=== PATIENT | female | born 1995 | race Caucasian/White ===

== ENCOUNTER 2018-05-29 17:40 | Emergency (ER) | payer OTHER ==
[2018-05-29] MEDS ORDERED: KETOROLAC 30 MG/ML 1 ML VIAL IVP STA (17:55)
[2018-05-29] MEDS ORDERED: MORPHINE SULFATE 4 MG/ML SYRINGE IVP STA (17:55)
[2018-05-29] MEDS ORDERED: SODIUM CHLORIDE 0.9% 1,000 ML IV ONE (17:56)
--- NOTE | 2018-05-29 17:59 | ED ---
ENT HPI - General Chief complaint: ENT Stated complaint: abscess in throat Time Seen by Provider: 05/29/18 17:48 Source: patient Mode of arrival: ambulatory Limitations: no limitations - History of Present Illness Initial comments: Patient is a 22-year-old female presents with a chief complaint of sore throat, transferred from [facility] for concern for a peritonsillar abscess. Patient states is going on for 4 days. She states her pain has gradually gotten worse. She states that she has trouble swallowing however he does not have any trouble breathing. She states that her pain is 9 out of 10. Patient denies any history of similar previous episodes. She has NO KNOWN DRUG ALLERGIES. No other medical history. - Related Data Previous Rx's Medication Instructions Recorded Amoxicillin/Potassium Clav 1 tab PO Q12HR #14 tab 05/29/18 [Augmentin 875-125 Tablet] HYDROcodone/APAP 5-325MG [[place] 1 tab PO Q6HR PRN 3 Days #12 tab 05/29/18 5-325] Ibuprofen [Motrin] 800 mg PO TID #20 tab 05/29/18 Allergies Allergy/AdvReac Type Severity Reaction Status Date / Time No Known Allergies Allergy Verified 05/29/18 17:46 Review of Systems ROS Statement: Those systems with pertinent positive or pertinent negative responses have been documented in the HPI. ROS Other: All systems not noted in ROS Statement are negative. 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 Absent: respiratory distress Cardiovascular Exam: Present: regular rate, normal rhythm GI/Abdominal exam: Present: soft. Absent: distended, tenderness Rectal exam: Present: deferred Extremities exam: Present: normal inspection Back exam: Present: normal inspection Neurological exam: Present: alert, oriented X3 Psychiatric exam: Present: normal affect, normal mood Skin exam: Present: warm, dry, intact Course Vital Signs 05/29/18 17:43 Temperature 98.7 F Pulse Rate 95 Respiratory 18 Rate Blood Pressure 123/87 O2 Sat by Pulse 97 Oximetry Medical Decision Making - Medical Decision Making Patient presents with a chief complaint of sore throat for 4 days. On initial evaluation, vitals are stable, patient is in no acute distress. Findings are concerning for a left-sided peritonsillar abscess. Patient reevaluated this blood work, test, computed tomography scan soft tissue of the neck. Patient given Toradol, morphine, and IV fluids. Computed tomography scan was discussed with Dr. Roberson. He states there is a 2.4 x 2.1 cm left-sided peritonsillar abscess. Case discussed with Dr. Benavidez who is agreeable with ED drainage. Patient was given a dose of Unasyn , Decadron. Abscess was drained using an 18-gauge needle. We were able to retrieve 2-1/2 mL of pus. On reevaluation, patient's voice sounds better, she states that the pressure is improved. Patient tolerated the procedure well. Aerobic and anaerobic cultures were sent. Patient will be discharged on 7 days of Augmentin. She was instructed to call Dr. Edwards's office on Thursday for expedited follow-up. - Lab Data Result diagrams: 05/29/18 18:41 05/29/18 18:41 Lab Results 05/29/18 05/29/18 Range/Units 18:41 18:41 WBC 17.2 H (4.0-11.0) k/uL RBC 4.99 (3.80-5.40) m/uL Hgb 13.7 (11.4-16.0) gm/dL Hct 42.5 (34.0-46.0) % MCV 85.1 (80.0-100.0) fL MCH 27.4 (25.0-35.0) pg MCHC 32.2 (31.0-37.0) g/dL RDW 14.3 (11.5-15.5) % Plt Count 418 (150-450) k/uL Neutrophils % 82 % Lymphocytes % 11 % Monocytes % 5 % Eosinophils % 1 % Basophils % 0 % Neutrophils # 14.1 H (1.3-7.7) k/uL Lymphocytes # 1.8 (1.0-4.8) k/uL Monocytes # 0.8 (0-1.0) k/uL Eosinophils # 0.1 (0-0.7) k/uL Basophils # 0.1 (0-0.2) k/uL Sodium 140 (137-145) mmol/L Potassium 4.5 (3.5-5.1) mmol/L Chloride 108 H (98-107) mmol/L Carbon Dioxide 20 L (22-30) mmol/L Anion Gap 12 mmol/L BUN 10 (7-17) mg/dL Creatinine 0.63 (0.52-1.04) mg/dL Est GFR (CKD-EPI)AfAm >90 (>60 ml/min/1.73 sqM) Est GFR (CKD-EPI)NonAf >90 (>60 ml/min/1.73 sqM) Glucose 101 H (74-99) mg/dL Calcium 9.6 (8.4-10.2) mg/dL HCG, Qual Not Detected Disposition Clinical Impression: Peritonsillar abscess Disposition: HOME SELF-CARE Condition: Good Instructions: Abscess Incision and Drainage (ED), Abscess (ED) Is patient prescribed a controlled substance at d/c from ED?: Yes If prescribed controlled substance>3 days was MAPS reviewed?: Prescribed <3 Days Referrals: None,Stated [Primary Care Provider] - 1-2 days Samara Xie MD [STAFF PHYSICIAN] - 1-2 days
[2018-05-29 18:52] LABS: Basophils # (A) 0.1 k/uL (0-0.2); Basophils % (A) 0 %; Eosinophils # (A) 0.1 k/uL (0-0.7); Eosinophils % (A) 1 %; HCT 42.5 % (34.0-46.0); HGB 13.7 gm/dL (11.4-16.0); Lymphocytes # (A) 1.8 k/uL (1.0-4.8); Lymphocytes % (A) 11 %; MCH 27.4 pg (25.0-35.0); MCHC 32.2 g/dL (31.0-37.0); MCV 85.1 fL (80.0-100.0); Monocytes # (A) 0.8 k/uL (0-1.0); Monocytes % (A) 5 %; Neutrophils # (A) 14.1 k/uL (1.3-7.7); Neutrophils % (A) 82 %; Platelet Count 418 k/uL (150-450); RBC 4.99 m/uL (3.80-5.40); RDW 14.3 % (11.5-15.5); WBC 17.2 k/uL (4.0-11.0)
[2018-05-29 19:05] LABS: HCG,Qualitative Serum Not Detected
[2018-05-29 19:19] LABS: Anion Gap 12 mmol/L; Blood Urea Nitrogen 10 mg/dL (7-17); Calcium 9.6 mg/dL (8.4-10.2); Carbon Dioxide 20 mmol/L (22-30); Chloride 108 mmol/L (98-107); Glucose 101 mg/dL (74-99); Potassium 4.5 mmol/L (3.5-5.1); Sodium 140 mmol/L (137-145)
[2018-05-29] MEDS ORDERED: AMPICILLIN-SULBACTAM 1.5 GM in SODIUM CHLORIDE 0.9% 50 ML IVPB STA (19:54)
[2018-05-29] MEDS ORDERED: DEXAMETHASONE SOD PHOSPHATE 10 MG/ML 1 ML VIAL IV STA (19:54)
[2018-05-29] MEDS ORDERED: LIDOCAINE VISCOUS 2% 15 ML CUP MUCOUS MEM ONE ×2 (19:54→20:20)
--- NOTE | 2018-05-29 19:54 | CT ---
EXAMINATION TYPE: CT soft tissue neck w con DATE OF EXAM: 05/29/2018 COMPARISON: None HISTORY: pain CT DLP: 359 mGycm CONTRAST: Patient injected with 100 mL of Isovue 300. TECHNIQUE: Axial images at 3 mm thick sections. Reconstructed images in the coronal plane and sagitt al plane are reviewed. FINDINGS: Limited CT sections are obtained the lung apices. The lung apices appear clear. CT neck: The torus tubarius and fossa of Rosenmuller are normal. Head Bander And Liner Operator spaces are normal. Para nasal sinuses and mastoid air cells are clear. There is fullness with hypodensity within the left tonsillar pillar. This measures approximately 2.4 x 2.1 cm in size suspicious for a peritonsillar abscess. Report was called to emergency room physicia n Dr Orosco by Dr. Roberson by telephone at the time of interpretation. Parotid glands appear normal and symmetrical. Submandibular glands, are normal. Parapharyngeal spac es are normal. No suspicious adenopathy is evident. The hypopharynx appears within normal limits. Vocal cord level appear symmetrical. Thyroid as visualized is normal. Osseous structures are normal. IMPRESSIONS: 1. Left Tonsillar abscess measuring 2.4 x 2.1 cm.
[2018-05-29 21:13] VITALS: BP 108/69; PULSE 78; RESP 20; TEMP 99.6
== END 2018-05-29 21:26 | disposition home or self-care (01) ==
LOC: EC 17:40
DX: J36 Peritonsillar abscess (principal)
CPT/HCPCS: 36415; 80048; 85025; 84703; 87070; 87205; 87075; 70491; 99284; 42700; 96365; 96375 ×2; 96361 ×2; J1100; J1885; J0295; Q9967; 99285

== ENCOUNTER 2019-08-25 14:22 | Emergency (ER) | payer OTHER ==
[2019-08-25] MEDS ORDERED: AMPICILLIN-SULBACTAM 3 GM in SODIUM CHLORIDE 0.9% 100 ML IVPB STA (15:11)
[2019-08-25] MEDS ORDERED: SODIUM CHLORIDE 0.9% 1,000 ML IV STA (15:11)
[2019-08-25 15:49] LABS: Basophils % (A) 0 %; Eosinophils # (A) 0.1 k/uL (0-0.7); Eosinophils % (A) 1 %; HCT 42.8 % (34.0-46.0); HGB 14.1 gm/dL (11.4-16.0); Lymphocytes # (A) 1.5 k/uL (1.0-4.8); Lymphocytes % (A) 10 %; MCH 29.3 pg (25.0-35.0); MCV 88.8 fL (80.0-100.0); Mean Platelet Volume 6.1; Monocytes # (A) 0.7 k/uL (0-1.0); Monocytes % (A) 5 %; Neutrophils # (A) 12.6 k/uL (1.3-7.7); Neutrophils % (A) 84 %; Platelet Count 406 k/uL (150-450); RBC 4.82 m/uL (3.80-5.40); RDW 12.3 % (11.5-15.5)
[2019-08-25 15:57] LABS: Appearance,Urine Cloudy (Clear); Bilirubin,Urine Negative (Negative); Blood,Urine Moderate (Negative); Color,Urine Yellow; Glucose,Urine (UA) Negative (Negative); Ketones,Urine Negative (Negative); Leukocyte Esterase,Urine Trace (Negative); Mucus,Urine Few /hpf; Nitrite,Urine Negative (Negative); PH, Urine 6.5 (5.0-8.0); Protein,Urine 1+ (Negative); RBC,Urine >182 /hpf (0-5); Specific Gravity,Urine 1.038 (1.001-1.035); Squamous Epithelial Cell,Urine 39 /hpf (0-4); WBC,Urine 7 /hpf (0-5)
[2019-08-25 16:00] LABS: ALT 34 U/L (9-52); AST 28 U/L (14-36); African American GFR (CKD) >90 (>60 ml/min/1.73 sqM); Albumin 4.1 g/dL (3.5-5.0); Alkaline Phosphatase 68 U/L (38-126); Anion Gap 9 mmol/L; Blood Urea Nitrogen 8 mg/dL (7-17); Calcium 9.3 mg/dL (8.4-10.2); Carbon Dioxide 26 mmol/L (22-30); Chloride 106 mmol/L (98-107); Glucose 100 mg/dL (74-99); Non-African American GFR(CKD) >90 (>60 ml/min/1.73 sqM); Potassium 3.9 mmol/L (3.5-5.1); Sodium 141 mmol/L (137-145); Total Bilirubin 0.6 mg/dL (0.2-1.3); Total Protein 7.3 g/dL (6.3-8.2)
--- NOTE | 2019-08-25 16:28 | CT ---
EXAMINATION TYPE: CT soft tissue neck w con DATE OF EXAM: 08/25/2019 COMPARISON: None HISTORY: Sore throat with hoarseness. CT DLP: 325.9 mGycm CONTRAST: Patient injected with 100 mL of Isovue 300. TECHNIQUE: Axial images at 3 mm thick sections. Reconstructed images in the coronal plane and sagitt al plane are reviewed. FINDINGS: Limited CT sections are obtained the lung apices. The lung apices appear clear. CT neck: There is a 1.9 cm hypodensity with ill-defined margins within the left tonsillar pillar. Fin dings can be compatible with peritonsillar abscess. Bilateral tonsils appears somewhat prominent. The torus tubarius and fossa of Rosenmuller are normal. There may be some fullness of the adenoid. M asticator spaces are normal. Paranasal sinuses and mastoid air cells are clear. Parotid glands appear normal and symmetrical. Submandibular glands, are normal. Parapharyngeal spac es are normal. Multiple scattered lymph nodes within the posterior triangles bilaterally. Enlarged l ymphadenopathy is not evident. Jugulodigastric and carotid sheath regions appear within normal limits . The hypopharynx appears within normal limits. Vocal cord level appear symmetrical. Thyroid as visualized is normal. Osseous structures are normal. IMPRESSIONS: 1. 1.9 cm left peritonsillar abscess. Report was called to the emergency room by Dr. Roberson by shelly walls at the time of interpretation.
[2019-08-25] MEDS ORDERED: BENZOCAINE SPRAY 1 CAN MUCOUS MEM STA (16:40)
--- NOTE | 2019-08-25 16:42 | ED ---
General Adult HPI - General Chief complaint: ENT Stated complaint: Throat pain Time Seen by Provider: 08/25/19 15:02 Source: patient, RN notes reviewed Mode of arrival: ambulatory Limitations: no limitations - History of Present Illness Initial comments: 24-year-old female presents to the emergency department for chief complaint of sore throat. This has been ongoing for the past 5 days. However patient states the pain is now only on the left side. States she has had a previous. Tonsillar abscess in this area. Patient is concerned she may be having the same thing again. She denies fevers or chills. She denies difficulty swallowing solids or liquids. Denies trismus. Denies neck stiffness. Patient has no other complaints at this time including shortness of breath, chest pain, abdominal pain, nausea or vomiting, headache, or visual changes. - Related Data Previous Rx's Medication Instructions Recorded Amoxicillin/Potassium Clav 1 tab PO Q12HR #14 tab 05/29/18 [Augmentin 875-125 Tablet] HYDROcodone/APAP 5-325MG [[place] 1 tab PO Q6HR PRN 3 Days #12 tab 05/29/18 5-325] Ibuprofen [Motrin] 800 mg PO TID #20 tab 05/29/18 Amoxicillin/Potassium Clav 1 tab PO Q12HR #20 tab 08/25/19 [Augmentin 875-125 Tablet] Allergies Allergy/AdvReac Type Severity Reaction Status Date / Time No Known Allergies Allergy Verified 08/25/19 14:40 Review of Systems ROS Statement: Those systems with pertinent positive or pertinent negative responses have been documented in the HPI. ROS Other: All systems not noted in ROS Statement are negative. Past Medical History Past Medical History: No Reported History History of Any Multi-Drug Resistant Organisms: None Reported Past Surgical History: Orthopedic Surgery Past Psychological History: No Psychological Hx Reported Smoking Status: Never smoker Past Alcohol Use History: Occasional Past Drug Use History: None Reported General Exam Limitations: no limitations General appearance: alert, in no apparent distress Head exam: Present: atraumatic, normocephalic, normal inspection Eye exam: Present: normal appearance, PERRL, EOMI. Absent: scleral icterus, conjunctival injection, periorbital swelling ENT exam: Present: normal exam, mucous membranes moist, TM's normal bilaterally, normal external ear exam. Absent: normal oropharynx (Patient has fullness over the left tonsillar pillar as well as deviation of the uvula to the right) Neck exam: Present: normal inspection, full ROM. Absent: tenderness, meningismus, lymphadenopathy Respiratory exam: Present: normal lung sounds bilaterally. Absent: respiratory distress, wheezes, rales, rhonchi, stridor Cardiovascular Exam: Present: regular rate, normal rhythm, normal heart sounds. Absent: systolic murmur, diastolic murmur, rubs, gallop, clicks Course Vital Signs 08/25/19 08/25/19 14:41 18:08 Temperature 98.2 F 98 F Pulse Rate 111 H 78 Respiratory 16 18 Rate Blood Pressure 121/73 120/78 O2 Sat by Pulse 97 98 Oximetry Procedures - Procedures Initial comment: Incision/Drainage of Peritonsillar Abscess Performed by: Deonte Daly PA-C. Consent: Verbal consent obtained. Type: peritonsilar abscess Location details: Left Anesthesia: Benzocaine spray Incision type: straight puncture to 1.5 cm with 18 G needle covered by plastic cover Attempts: 1 Drainage: purulent drainage Drainage amount: 3cc Patient tolerance: Patient tolerated the procedure well with no immediate complications. Medical Decision Making - Medical Decision Making Vitals are stable. Patient initially tachycardic likely secondary to anxiety as this did normalize throughout her stay. Physical exam reveals fullness of the left tonsillar pillar as well as a uvula deviated to the right. CBC shows a white blood cell count 15. CMP is unremarkable. Urine does show greater than 182 red blood cells however patient does not report being on her period. I recommended she follow up to have this repeated to ensure that this resolves. Heterophile, rapid strep negative. CT soft tissue neck was ordered which did reveal a 1.9 cm left peritonsillar abscess. I did drain this using an 18-gauge needle without difficulty after giving 1 mg of Ativan for anxiety. 3 mL of purulent material was obtained. Patient was given IV Unasyn here in the emergency department. She will be put on Augmentin outpatient. She was given ENT follow-up. She will return here if she has any worsening symptoms. She is currently stable for discharge. - Lab Data Result diagrams: 08/25/19 15:29 08/25/19 15:29 Lab Results 08/25/19 08/25/19 08/25/19 Range/Units 15:29 15:29 15:29 WBC 15.0 H (3.8-10.6) k/uL RBC 4.82 (3.80-5.40) m/uL Hgb 14.1 (11.4-16.0) gm/dL Hct 42.8 (34.0-46.0) % MCV 88.8 (80.0-100.0) fL MCH 29.3 (25.0-35.0) pg MCHC 33.0 (31.0-37.0) g/dL RDW 12.3 (11.5-15.5) % Plt Count 406 (150-450) k/uL Neutrophils % 84 % Lymphocytes % 10 % Monocytes % 5 % Eosinophils % 1 % Basophils % 0 % Neutrophils # 12.6 H (1.3-7.7) k/uL Lymphocytes # 1.5 (1.0-4.8) k/uL Monocytes # 0.7 (0-1.0) k/uL Eosinophils # 0.1 (0-0.7) k/uL Basophils # 0.0 (0-0.2) k/uL Sodium 141 (137-145) mmol/L Potassium 3.9 (3.5-5.1) mmol/L Chloride 106 (98-107) mmol/L Carbon Dioxide 26 (22-30) mmol/L Anion Gap 9 mmol/L BUN 8 (7-17) mg/dL Creatinine 0.69 (0.52-1.04) mg/dL Est GFR (CKD-EPI)AfAm >90 (>60 ml/min/1.73 sqM) Est GFR (CKD-EPI)NonAf >90 (>60 ml/min/1.73 sqM) Glucose 100 H (74-99) mg/dL Calcium 9.3 (8.4-10.2) mg/dL Total Bilirubin 0.6 (0.2-1.3) mg/dL AST 28 (14-36) U/L ALT 34 (9-52) U/L Alkaline Phosphatase 68 (38-126) U/L Total Protein 7.3 (6.3-8.2) g/dL Albumin 4.1 (3.5-5.0) g/dL Urine Color Urine Appearance (Clear) Urine pH (5.0-8.0) Ur Specific [place] (1.001-1.035) Urine Protein (Negative) Urine Glucose (UA) (Negative) Urine Ketones (Negative) Urine Blood (Negative) Urine Nitrite (Negative) Urine Bilirubin (Negative) Urine Urobilinogen (<2.0) mg/dL Ur Leukocyte Esterase (Negative) Urine RBC (0-5) /hpf Urine WBC (0-5) /hpf Ur Squamous Epith Cells (0-4) /hpf Urine Mucus (None) /hpf Urine HCG, Qual Not Detected (Not Detectd) Heterophile Antibody (Negative) Group A Strep Rapid (Negative) 08/25/19 08/25/19 08/25/19 Range/Units 15:29 15:29 15:29 WBC (3.8-10.6) k/uL RBC (3.80-5.40) m/uL Hgb (11.4-16.0) gm/dL Hct (34.0-46.0) % MCV (80.0-100.0) fL MCH (25.0-35.0) pg MCHC (31.0-37.0) g/dL RDW (11.5-15.5) % Plt Count (150-450) k/uL Neutrophils % % Lymphocytes % % Monocytes % % Eosinophils % % Basophils % % Neutrophils # (1.3-7.7) k/uL Lymphocytes # (1.0-4.8) k/uL Monocytes # (0-1.0) k/uL Eosinophils # (0-0.7) k/uL Basophils # (0-0.2) k/uL Sodium (137-145) mmol/L Potassium (3.5-5.1) mmol/L Chloride (98-107) mmol/L Carbon Dioxide (22-30) mmol/L Anion Gap mmol/L BUN (7-17) mg/dL Creatinine (0.52-1.04) mg/dL Est GFR (CKD-EPI)AfAm (>60 ml/min/1.73 sqM) Est GFR (CKD-EPI)NonAf (>60 ml/min/1.73 sqM) Glucose (74-99) mg/dL Calcium (8.4-10.2) mg/dL Total Bilirubin (0.2-1.3) mg/dL AST (14-36) U/L ALT (9-52) U/L Alkaline Phosphatase (38-126) U/L Total Protein (6.3-8.2) g/dL Albumin (3.5-5.0) g/dL Urine Color Yellow Urine Appearance Cloudy H (Clear) Urine pH 6.5 (5.0-8.0) Ur Specific [place] 1.038 H (1.001-1.035) Urine Protein 1+ H (Negative) Urine Glucose (UA) Negative (Negative) Urine Ketones Negative (Negative) Urine Blood Moderate H (Negative) Urine Nitrite Negative (Negative) Urine Bilirubin Negative (Negative) Urine Urobilinogen 2.0 (<2.0) mg/dL Ur Leukocyte Esterase Trace H (Negative) Urine RBC >182 H (0-5) /hpf Urine WBC 7 H (0-5) /hpf Ur Squamous Epith Cells 39 H (0-4) /hpf Urine Mucus Few H (None) /hpf Urine HCG, Qual (Not Detectd) Heterophile Antibody Negative (Negative) Group A Strep Rapid Negative (Negative) Disposition Clinical Impression: Peritonsillar abscess Disposition: HOME SELF-CARE Condition: Good Instructions (If sedation given, give patient instructions): Peritonsillar Abscess (ED) Additional Instructions: Please take antibiotic as directed. Please follow-up with ENT in 1-2 days. Return to the emergency department if you have any worsening symptoms. Follow up with primary care for blood in urine to ensure that this is resolving. Prescriptions: Amoxicillin/Potassium Clav [Augmentin 875-125 Tablet] 1 tab PO Q12HR #20 tab Is patient prescribed a controlled substance at d/c from ED?: No Referrals: Pernell Santacruz DO [Doctor of Osteopathic Medicine] - 1-2 days Jason Norton MD [REFERRING] - 1-2 days Time of Disposition: 17:50
[2019-08-25] MEDS ORDERED: LORazepam 2 MG/ML INJ IV STA (17:00)
[2019-08-25 18:09] VITALS: BP 120/78; PULSE 78; RESP 18; TEMP 98
== END 2019-08-25 18:08 | disposition home or self-care (01) ==
LOC: EC 14:22
DX: J36 Peritonsillar abscess (principal); R00.0 Tachycardia, unspecified; R31.9 Hematuria, unspecified
CPT/HCPCS: 36415; 80053; 85025; 86308; 81001; 81025; 87040; 87070; 87205; 87081; 87430; 70491; 99283; 42700; 96365; 96375; J2060; J0295; Q9967

== ENCOUNTER 2020-10-26 20:30 | Outpatient (CLI) | payer OTHER ==
[2020-10-26 21:29] VITALS: BP 117/68; PULSE 111; RESP 18; TEMP 96.7
--- NOTE | 2020-11-16 15:33 | P.MSEPDOC ---
Presenting Problems - Arrival Data Date of Arrival on Unit: 10/26/20 Time of Arrival on Unit: 20:30 Mode of Transport: Ambulatory - Complaint OB-Reason for Admission/Chief Complaint: Decreased Movement Medical History - Information : 1 Para: 0 Term: 0 : 0 Abortions: Spontaneous or Elective: 0 Number of Living Children: 0 - Gestational Age Gestational Age by KATHY (wks/days): 34 Weeks and 4 Days Review of Systems - Review of Systems Constitutional: No problems Breast: No problems ENT: No problems Cardiovascular: No problems Respiratory: No problems Gastrointestinal: No problems Genitourinary: No problems Musculoskeletal: No problems Neurological: No problems Skin: No problems Vital Signs - Temperature Temperature: 96.7 F Temperature Source: Temporal Artery Scan - Pulse Right Pulse Rate: 111 Pulse Assessment Method: Pulse Oximetry - Respirations Respiratory Rate: 18 Oxygen Delivery Method: Room Air O2 Sat by Pulse Oximetry: 98 - Blood Pressure Right Arm Blood Pressure: 117/68 Blood Pressure Mean: 84 Blood Pressure Source: Automatic Cuff Medical Screen Scoring (Pre) - Cervical Exam Dilation: Exam Deferred Effacement: Exam Deferred Membranes: Intact - Uterine Contractions Frequency: N/A Duration: N/A Intensity: N/A - Maternal Vital Signs Maternal Temperature: N/A Maternal Blood Pressure: N/A Signs of Preeclampsia: N/A Maternal Respirations: N/A - Maternal Trauma Maternal Trauma: N/A - Assessment - Baby A Baseline FHR: 145 Heart Rate - NICHD Category: Category I (Normal) = 0 NST: Reactive Position: N/A Station: N/A - Total Score - Baby A Total Score - Baby A: 0 - Total Score - Baby B Total Score - Baby B: 0 - Total Score - Baby C Total Score - Baby C: 0 - Level of Risk - Baby A Level of Risk - Baby A: Low (0-5) - Level of Risk - Baby B Level of Risk - Baby B: Low (0-5) - Level of Risk - Baby C Level of Risk - Baby C: Low (0-5) Physician Notification (Pre) - Physician Notified Physician Notified Date: 10/26/20 Physician Notified Time: 20:56 New Order Received: Yes - Notification Comment Comment: RN spoke with Dr. Singh regarding patient's complaint of decreased . movement throughout today. Reactive NST, audible movement noted per RN, no movement per patient. No other complaints. RN to discharge patient and reassure patient that . status is reassuring. Patient to follow up with Dr. Hernández next week in the office. Disposition - Disposition OB Disposition: Discharge to home Discharge Date: 10/26/20 Discharge Time: 21:05 I agree with the RN Medical Screening Exam: Yes Physician's MSE Comment: Patient was not seen or examined by myself Case reviewed; plan agreed upon as documented in EMR&OBIX.: Yes Diagnosis: DECREASED MOVEMENTS, THIRD TRIMESTER, FETUS 1
== END 2020-10-26 21:05 | disposition home or self-care (01) ==
LOC: FBPOP 20:30
PROVIDERS: ATTEND Obstetrics & Gynecology Obstetrics
DX: O36.8131 Decreased fetal movements, third trimester, fetus 1 (principal); Z3A.34 34 weeks gestation of pregnancy
CPT/HCPCS: 59025; G0463; 99213

== ENCOUNTER 2020-12-06 05:59 | Inpatient (IN) | payer OTHER ==
[2020-12-06] MEDS ORDERED: OXYTOCIN 30 UNITS/500 ML NS 30 UNIT in SALINE 1 500ML.BAG IV SCH (06:15)
[2020-12-06] MEDS ORDERED: METHYLERGONOVINE 0.2 MG/ML 1 ML AMP IM PRN (06:15)
[2020-12-06] MEDS ORDERED: OXYTOCIN 10 UNIT/ML 1 ML VIAL IM PRN (06:15)
[2020-12-06] MEDS ORDERED: CARBOPROST TROMETHAMINE 250 MCG/ML 1 ML AMP IM PRN (06:15)
[2020-12-06] MEDS ORDERED: LIDOCAINE 0.5% (PF) 5 MG/ML (50 ML SDV) SQ PRN (06:15)
[2020-12-06] MEDS ORDERED: TERBUTALINE 1 MG/ML VIAL SQ PRN (06:15)
[2020-12-06] MEDS: LACTATED RINGERS 1,000 ML IV SCH ×4 (06:47→21:00)
[2020-12-06 07:04] LABS: Basophils # (A) 0.1 k/uL (0-0.2); Basophils % (A) 1 %; Eosinophils # (A) 0.3 k/uL (0-0.7); Eosinophils % (A) 3 %; HGB 11.7 gm/dL (11.4-16.0); Lymphocytes # (A) 2.5 k/uL (1.0-4.8); Lymphocytes % (A) 21 %; MCH 28.8 pg (25.0-35.0); MCHC 33.5 g/dL (31.0-37.0); MCV 85.9 fL (80.0-100.0); Mean Platelet Volume 7.9; Monocytes # (A) 0.6 k/uL (0-1.0); Monocytes % (A) 5 %; Neutrophils # (A) 8.2 k/uL (1.3-7.7); Neutrophils % (A) 69 %; Platelet Count 301 k/uL (150-450); RBC 4.07 m/uL (3.80-5.40); RDW 14.2 % (11.5-15.5); WBC 11.9 k/uL (3.8-10.6)
--- NOTE | 2020-12-06 07:19 | P.HPOB ---
History of Present Illness H&P Date: 12/06/20 Chief Complaint: Here for induction of labor This is a 25-year-old white female 1 para 0 EDC 12/03/2020 at 40-3/7 weeks' gestation who presents this morning for induction of labor with favorable cervix. Fetus is been active throughout the . She is having mild irregular contractions. She denies fluid leakage or vaginal bleeding. Past medical history is essentially negative. Past surgical history significant for finger surgery. Current medications vitamins daily. ALLERGIES none known. Family history significant for hypertension and breast cancer. Social history patient is single, father of the baby is involved. She denies alcohol tobacco or drug use. history blood type A+, rubella status nonimmune. VDRL testing, urine culture, hepatitis B surface antigen, HIV testing, gonorrhea cultures, group B strep cultures negative. Chlamydia culture positive, treated, reculture negative. On exam patient is 5 foot 5 inches, 224 pounds, blood pressure 121/79. General physical exam is within normal limits. Cervix is 3 cm dilated, 80% effaced, -1 station, vertex presentation, soft, anterior. Artificial amniorrhexis reveals clear fluid. heart tones are consistent with reactive NST. Impression: 40-3/7 weeks intrauterine , here for induction of labor, all signs reassuring. Negative group B strep cultures. Plan: Oxytocin per hospital protocol. Analgesic options reviewed. Close maternal and surveillance. Anticipate normal spontaneous vaginal delivery. Review of Systems Constitutional: Reports as per HPI Past Medical History Past Medical History: No Reported History History of Any Multi-Drug Resistant Organisms: None Reported Past Surgical History: Orthopedic Surgery Past Anesthesia/Blood Transfusion Reactions: No Reported Reaction Past Psychological History: No Psychological Hx Reported Smoking Status: Never smoker Past Alcohol Use History: None Reported Past Drug Use History: None Reported - Past Family History Mother Family Medical History: No Reported History Medications and Allergies Home Medications Medication Instructions Recorded Confirmed Type Pnv,Calcium 72/Iron/Folic Acid 1 tab PO DAILY 10/26/20 12/06/20 History [ Plus Tablet] Allergies Allergy/AdvReac Type Severity Reaction Status Date / Time No Known Allergies Allergy Verified 12/06/20 06:13 Exam Vital Signs Temp Pulse Resp BP Pulse Ox 12/06/20 06:32 96.5 F L 94 16 121/79 100 Intake and Output 12/05/20 12/06/20 12/06/20 22:59 06:59 14:59 Other: Weight 101.605 kg See dictation under HPI please Results Result Diagrams: 12/06/20 06:23 Abnormal Lab Results - Last 24 Hours (Table) 12/06/20 Range/Units 06:23 WBC 11.9 H (3.8-10.6) k/uL Neutrophils # 8.2 H (1.3-7.7) k/uL Assessment and Plan Assessment: 40-3/7 weeks intrauterine , here for induction of labor. All signs reassuring. Plan: Continue close maternal and surveillance. Analgesic options reviewed. Anticipate normal spontaneous vaginal delivery. Time with Patient: Less than 30
[2020-12-06] MEDS ORDERED: ROPIVACAINE 5MG/ML 20ML VIAL ONE (09:27)
[2020-12-06] MEDS ORDERED: SODIUM CHLORIDE 0.9% 100 ML BAG ONE (09:27)
[2020-12-06] MEDS ORDERED: fentaNYL (PF) 50 MCG/ML 5 ML AMP ONE (09:27)
[2020-12-06] MEDS ORDERED: CITRIC ACID-SODIUM CITRATE 15 ML CUP PO ONE (16:48)
[2020-12-06] MEDS ORDERED: OXYTOCIN 10 UNIT/ML 1 ML VIAL ONE (16:57)
[2020-12-06] MEDS ORDERED: KETOROLAC 15 MG/ML 1 ML VIAL ONE (16:57)
[2020-12-06] MEDS ORDERED: NALBUPHINE 10 MG/ML (1 ML AMP) ONE (16:57)
[2020-12-06] MEDS ORDERED: ZOLPIDEM 5 MG TAB PO PRN (17:45)
[2020-12-06] MEDS ORDERED: METOCLOPRAMIDE 5 MG/ML 2 ML VIAL IVP PRN (17:45)
[2020-12-06] MEDS ORDERED: MEASLES-MUMPS-RUBELLA VACC/PF 12,500 UNIT/0.5 ML VIAL SQ ONE (17:45)
[2020-12-06] MEDS ORDERED: ONDANSETRON 4 MG/2 ML VIAL IVP PRN (17:45)
[2020-12-06] MEDS ORDERED: diphenhydrAMINE 50 MG CAP PO PRN (17:45)
[2020-12-06] MEDS ORDERED: diphenhydrAMINE 50 MG/ML 1 ML VIAL IVP PRN ×2 (17:45)
[2020-12-06] MEDS ORDERED: diphenhydrAMINE 25 MG CAP PO PRN (17:45)
[2020-12-06] MEDS ORDERED: NALOXONE 0.4 MG/ML 1 ML VIAL IV PRN (17:45)
--- NOTE | 2020-12-06 17:45 | P.OP ---
Date of Procedure: 12/06/20 Preoperative Diagnosis: 40-3/7 weeks intrauterine , arrest of descent in the second stage. Postoperative Diagnosis: Occiput posterior, liveborn male infant. Procedure(s) Performed: Primary low transverse section Anesthesia: epidural Surgeon: Anisha Hernández Project Development Coordinator #1: Madhavi Singh Estimated Blood Loss (ml): 500 IV fluids (ml): 600 Urine output (ml): 50 Pathology: none sent Condition: stable Disposition: PACU Operative Findings: Liveborn male , normal-appearing tubes and ovaries bilaterally. Description of Procedure: This is a 25-year-old white female 1 para 0 EDC 12/03/2020 at 40-3/7 weeks' gestation who presented this morning for induction of labor. Patient became completely dilated and began pushing. There was no descent in the second stage noted, and this accompanied by maternal exhaustion and unwillingness to push upon to rest to proceed with primary low transverse section. Artificial amniorrhexis revealed Clear fluid. Patient is brought to the operating suite where the previously placed epidural is topped off. She is placed in the dorsal supine position, Webber catheter to direct drainage. The abdomen is prepped and draped in usual sterile fashion. Vaginal prep was performed. The appropriate timeout is performed to assure proper patient and procedural identification. The analgesia is checked and noted to be working well. A low transverse skin incision is made in this is carried down through the subcutaneous tissue which is approximately 4 cm deep. Fascia is isolated, scored, extended bilaterally with curved Rodriguez scissors. Peritoneum is next identified and incised, there is no bowel or bladder involvement. The bladder blade is placed over the dome of the bladder and at all times the bladder is Well from the operative field to avoid bladder and/or ureteral injury. A low transverse uterine incision is made in this is extended. 's head is delivered occiput posterior. There is no nuchal cord noted. The patient is officially delivered of a liveborn male infant was handed immediately to the power manager for evaluation. Placenta is delivered manually, it is inspected and noted to be intact with trivascular cord. At this time the uterus is externalized and massaged. It is swept clean with a sterile sponge to avoid any retained products of conception. Uterus is closed in a two-step fashion, first layer running locking with 0 Vicryl, second layer imbricated with 0 Vicryl. Bilateral tubes and ovaries are inspected and noted to be normal. The abdomen is then suctioned with suction on guard posterior to the uterus, and the uterus is placed gently back into the abdominal cavity. Bilateral gutters are inspected and cleaned. Uterine incision is hemostatically intact. The peritoneum was allowed to close by secondary intention. The fascia is closed in a single full-thickness stitch of 0 Vicryl, running. Over ligation is done in the midline. Subcutaneous tissue is irrigated, inspected, clean and dry. 2-0 undyed Vicryl is used to reapproximate the subcutaneous layer in a running fashion. 4-0 undyed Vicryl issues for final skin closure. Steri-Strips and Mastisol are applied to the wound. Webber is noted to be draining clear urine. All sponge needle and enhancement counts are correct at the end of the procedure. Patient is brought back to recovery room in very good condition with stable vital signs. Infant's weight 7 lbs. 7 oz. Infant is brought to the nursery for further evaluation.
[2020-12-07] MEDS: IBUPROFEN 600 MG TAB PO SCH ×4 (00:44→22:21)
[2020-12-07] MEDS: SENNOSIDES-DOCUSATE SODIUM 1 EACH TAB PO SCH ×3 (03:15→22:21)
[2020-12-07] MEDS: ACETAMINOPHEN TAB 500 MG TAB PO SCH ×3 (03:39→20:24)
[2020-12-07] MEDS: LACTATED RINGERS 1,000 ML IV SCH ×2 (04:58→22:21)
--- NOTE | 2020-12-07 07:47 | P.PN ---
Progress Note - Text Date:12/07/20 Time:651am Patient is status post . Patient seen this morning with VAS score of 4.no c/o of pruritus, no c/o nausea/vomiting, comfortable and doing well.
[2020-12-07 10:02] LABS: Basophils % (A) 0 %; Eosinophils # (A) 0.3 k/uL (0-0.7); Eosinophils % (A) 2 %; HCT 31.2 % (34.0-46.0); HGB 10.1 gm/dL (11.4-16.0); Lymphocytes # (A) 2.3 k/uL (1.0-4.8); Lymphocytes % (A) 16 %; MCH 27.9 pg (25.0-35.0); MCHC 32.4 g/dL (31.0-37.0); MCV 86.2 fL (80.0-100.0); Mean Platelet Volume 7.7; Monocytes # (A) 0.7 k/uL (0-1.0); Monocytes % (A) 5 %; Neutrophils # (A) 10.4 k/uL (1.3-7.7); Neutrophils % (A) 76 %; Platelet Count 269 k/uL (150-450); RBC 3.63 m/uL (3.80-5.40); RDW 14.7 % (11.5-15.5); WBC 13.7 k/uL (3.8-10.6)
[2020-12-08] MEDS: IBUPROFEN 600 MG TAB PO SCH ×4 (01:31→17:14)
[2020-12-08] MEDS: ACETAMINOPHEN TAB 500 MG TAB PO SCH ×4 (01:31→14:21)
[2020-12-08] MEDS: LACTATED RINGERS 1,000 ML IV SCH (01:32)
[2020-12-08] MEDS: SENNOSIDES-DOCUSATE SODIUM 1 EACH TAB PO SCH (08:00)
[2020-12-08 09:24] VITALS: RESP 18
--- NOTE | 2020-12-08 12:17 | P.DS ---
Providers Date of admission: 12/06/20 05:59 Expected date of discharge: 12/08/20 Attending physician: Anisha Hernández Primary care physician: Stated None - Discharge Diagnosis(es) (1) Status post section Current Visit: Yes Status: Acute Hospital Course: The patient is a 25-year-old 1 para 0 admitted at 40-3/7 weeks for induction of labor. Her has been essentially uncomplicated and group B strep status is negative. On labor and delivery, she had Pitocin started followed by artificial rupture of membranes. She progressed and had an epidural catheter placed for analgesia. She ultimately progressed to complete and began to push but ultimately was found to have arrest of descent along with maternal exhaustion. As a result, she was taken the operating room where she was delivered by primary low transverse section of a viable 3380 g male infant with Apgars of 2 at 1 minute 7 at 5 minutes and 9 at 10 minutes. Her postoperative course was unremarkable with vital signs being stable and her temperature was afebrile throughout. She was deemed stable for discharge on postoperative day #2 and was discharged home to follow-up in the office in 2 weeks for an incision check and 6 weeks routinely. Discharge instructions included calling for any significantly increased bleeding or foul-smelling lochia, significantly increased fever or abdominal pain, perineal complaints, breast complaints, incisional complaints, or anything else that concerned her. She is additionally instructed to have nothing in the vagina for at least 6 weeks time to include intercourse. She was additionally instructed to do no heavy lifting over the same period of time and to abstain from driving until off of all pain medications or 2 weeks' time, whichever came first. She understood her instructions and agrees to follow up as noted above. Maternal blood type is A+ and rubella status is nonimmune. She therefore was to receive the MMR vaccination prior to discharge. Discharge hemoglobin and hematocrit were 10.1 and 31.2 respectively. Procedures: #1. Pitocin induction #2. Artificial rupture of membranes #3. Epidural analgesia #4. Primary low-transverse section Patient Condition at Discharge: Stable Plan - Discharge Summary New Discharge Prescriptions: No Action Pnv,Calcium 72/Iron/Folic Acid [ Plus Tablet] 1 tab PO DAILY Discharge Medication List Pnv,Calcium 72/Iron/Folic Acid [ Plus Tablet] 1 tab PO DAILY 10/26/20 [History] Follow up Appointment(s)/Referral(s): Anisha Hernández MD [STAFF PHYSICIAN] - 2 Weeks Discharge Disposition: HOME SELF-CARE
[2020-12-08 16:56] VITALS: BP 110/66; PULSE 85; TEMP 98
== END 2020-12-08 17:45 | disposition home or self-care (01) | DRG 788 ==
LOC: 4FBP 05:59
PROVIDERS: ADMIT Obstetrics & Gynecology; ATTEND Obstetrics & Gynecology
PROC: 3E033VJ Introduction of Other Hormone into Peripheral Vein, Percutaneous Approach (ICD-10-PCS; 2020-12-06)
PROC: 3E0R3BZ Introduction of Anesthetic Agent into Spinal Canal, Percutaneous Approach (ICD-10-PCS; 2020-12-06)
PROC: 10D00Z1 Extraction of Products of Conception, Low, Open Approach (ICD-10-PCS; principal; 2020-12-06 06:00)
DX: O62.1 Secondary uterine inertia (principal); Z3A.40 40 weeks gestation of pregnancy; O75.81 Maternal exhaustion complicating labor and delivery; Z37.0 Single live birth; Z79.899 Other long term (current) drug therapy; Z80.3 Family history of malignant neoplasm of breast; Z82.49 Family history of ischemic heart disease and other diseases of the circulatory system
CPT/HCPCS: 85025; 86850; 86900; 86901; 90707

== ENCOUNTER 2021-06-30 17:25 | Emergency (ER) | payer OTHER ==
[2021-06-30 19:10] VITALS: BP 107/76; PULSE 88; RESP 17; TEMP 98.2
[2021-06-30] MEDS ORDERED: AMOXIC-POT CLAV 875MG STARTER PACK 2 TAB BTL PO STA (19:24)
[2021-06-30] MEDS ORDERED: ACET/COD 300 MG/30 MG STARTER PACK 6 TAB BTL PO STA (19:24)
--- NOTE | 2021-06-30 19:25 | ED ---
General Adult HPI - General Chief complaint: Dental/Oral Stated complaint: tooth pain Time Seen by Provider: 06/30/21 19:16 Source: patient Mode of arrival: ambulatory Limitations: no limitations - History of Present Illness Initial comments: 25-year-old female patient presents to the emergency department today for evaluation of right lower dental pain. Patient states the pain is been present for the last couple of days. States today the pain started radiating up to her ear and down her jaw. States that she did have similar toothache when she was but it stopped for several months. She has not followed up with the dentist. She denies any fever or chills. Denies facial swelling. Denies any trismus or difficulty swallowing. Denies nausea or vomiting. Denies any chance of . - Related Data Home Medications Medication Instructions Recorded Confirmed Pnv,Calcium 72/Iron/Folic Acid 1 tab PO DAILY 10/26/20 12/06/20 [ Plus Tablet] Previous Rx's Medication Instructions Recorded Amoxic-Pot Clav 875-125Mg 1 tab PO Q12HR #20 tablet 06/30/21 [Augmentin 875-125] Allergies Allergy/AdvReac Type Severity Reaction Status Date / Time No Known Allergies Allergy Verified 06/30/21 19:10 Review of Systems ROS Statement: Those systems with pertinent positive or pertinent negative responses have been documented in the HPI. ROS Other: All systems not noted in ROS Statement are negative. Past Medical History Past Medical History: No Reported History History of Any Multi-Drug Resistant Organisms: None Reported Past Surgical History: Section, Orthopedic Surgery Past Anesthesia/Blood Transfusion Reactions: No Reported Reaction Past Psychological History: No Psychological Hx Reported Smoking Status: Never smoker Past Alcohol Use History: None Reported Past Drug Use History: None Reported - Past Family History Mother Family Medical History: No Reported History General Exam Limitations: no limitations General appearance: alert, in no apparent distress, other (This is a well- developed, well-nourished adult female patient in no acute distress. Vital signs upon presentation are temperature 98.2F, pulse 88, respirations 17, blood pressure 107/76, pulse ox 97% on room air.) ENT exam: Present: normal exam, mucous membranes moist, other (There is a large dental caries noted to tooth #30. Mild surrounding gingival erythema. No evidence for drainable abscess.) Respiratory exam: Present: normal lung sounds bilaterally. Absent: respiratory distress, wheezes, rales, rhonchi, stridor Cardiovascular Exam: Present: regular rate, normal rhythm, normal heart sounds. Absent: systolic murmur, diastolic murmur, rubs, gallop, clicks Neurological exam: Present: alert, oriented X3, CN II-XII intact Psychiatric exam: Present: normal affect, normal mood Skin exam: Present: warm, dry, intact, normal color. Absent: rash Course Vital Signs 06/30/21 19:05 Temperature 98.2 F Pulse Rate 88 Respiratory 17 Rate Blood Pressure 107/76 O2 Sat by Pulse 97 Oximetry Medical Decision Making - Medical Decision Making 25-year-old female patient presented to the emergency department today for evaluation of right lower dental pain. Physical examination did reveal extensive dental caries to tooth #30. No evidence for drainable abscess. She is afebrile. She'll be started on antibiotics and pain medication. She'll be discharged WITH dentist as soon as possible. Return parameters were discussed in detail. She verbalizes understanding and agrees this plan. My attending is Dr. Trejo Disposition Clinical Impression: Pain, dental Disposition: HOME SELF-CARE Condition: Good Instructions (If sedation given, give patient instructions): Dental Abscess (ED), Toothache (ED) Additional Instructions: Complete antibiotic prescription in full. Follow-up with the primary care physician and dentist as soon as possible. Take pain medication sparingly for severe pain. Take ibuprofen every 6 hours with a meal. Return to the emergency department for any new, worsening, or concerning symptoms. Prescriptions: Amoxic-Pot Clav 875-125Mg [Augmentin 875-125] 1 tab PO Q12HR #20 tablet Is patient prescribed a controlled substance at d/c from ED?: No Referrals: None,Stated [Primary Care Provider] - 1-2 days Time of Disposition: 19:25
== END 2021-06-30 19:31 | disposition home or self-care (01) ==
LOC: EC 17:25
DX: K08.89 Other specified disorders of teeth and supporting structures (principal)
CPT/HCPCS: 99282

== ENCOUNTER 2023-08-26 17:27 | Emergency (ER) | payer OTHER ==
--- NOTE | 2023-08-26 18:13 | ED ---
Fever HPI - General Source: patient Mode of arrival: ambulatory Limitations: no limitations <Gabriel Penaloza - Last Filed: 08/26/23 18:13> - General Source: RN notes reviewed <Jada Jackson - Last Filed: 08/27/23 03:58> - General Chief Complaint: Fever Stated Complaint: Fever,Sinus/Throat Pain Time Seen by Provider: 08/26/23 18:16 - History of Present Illness Initial Comments: 28-year-old female presenting to the ED with a chief complaint of sore throat. Patient states for the past 3 days has had sore throat, body aches, headache, congestion, and fever. No chest pain or shortness of breath (Gabriel Penaloza) Note reviewed: This is a 28-year-old female who presents the emergency department with a chief complaint of sore throat. She reports that she has had a sore throat, body aches, headache, nasal congestion and fever for the last 3 days. She denies any recent sick contacts. She is up-to-date on vaccines. She denies chest pain, shortness of breath, nausea, vomiting, abdominal pain. She been trying [id number] remedies with mild symptomatic improvement (Jada Jackson) - Related Data Home Medications Medication Instructions Recorded Confirmed Vit No.180/Iron/Folic 1 tab PO DAILY 10/26/20 12/06/20 [ Plus Tablet] Previous Rx's Medication Instructions Recorded Amoxic-Pot Clav 875-125Mg 1 tab PO Q12HR #20 tablet 06/30/21 [Augmentin 875-125] Tobramycin 0.3% Ophth Soln [Tobrex 1 - 2 drop BOTH EYES Q4H #5 ml 04/29/23 0.3% Ophth Soln] Amoxicillin 875 mg PO Q12HR #20 tablet 08/26/23 Allergies Allergy/AdvReac Type Severity Reaction Status Date / Time No Known Allergies Allergy Verified 08/26/23 17:34 Review of Systems ROS Other: All systems not noted in ROS Statement are negative. <Gabriel Penaloza - Last Filed: 08/26/23 18:13> ROS Other: All systems not noted in ROS Statement are negative. <Jada Jackson - Last Filed: 08/27/23 03:58> ROS Statement: Those systems with pertinent positive or pertinent negative responses have been documented in the HPI. Past Medical History Past Medical History: No Reported History History of Any Multi-Drug Resistant Organisms: None Reported Past Surgical History: Section, Orthopedic Surgery Past Anesthesia/Blood Transfusion Reactions: No Reported Reaction Past Psychological History: No Psychological Hx Reported Smoking Status: Never smoker Past Alcohol Use History: None Reported Past Drug Use History: None Reported - Past Family History Mother Family Medical History: No Reported History <Gabriel Penaloza - Last Filed: 08/26/23 18:13> General Exam Limitations: no limitations General appearance: alert, in no apparent distress Neck exam: Present: normal inspection Extremities exam: Present: normal inspection Back exam: Present: normal inspection Neurological exam: Present: alert <Gabriel Penaloza - Last Filed: 08/26/23 18:13> <Jada Jackson - Last Filed: 08/27/23 03:58> - General Exam Comments Initial Comments: General: Alert, in no acute distress Head: atraumatic normocephalic. Eyes PERRL, EOMI intact, mucous membranes moist, tonsilar megaly with tonsillar exudate Respiratory: Lungs clear to auscultation bilaterally Cardiovascular: Regular rate and Abdominal: Soft without guarding or rebound Extremities: Normal inspection with full range of motion and normal capillary refill Neuroogic: alert and oriented 3, CN II-XII intact, able to ambulate with steady gait Skin: warm dry and intact with normal color (Jada Jackson) Course Vital Signs 08/26/23 08/26/23 17:32 23:27 Temperature 99.7 F H 97.8 F Pulse Rate 127 H 87 Respiratory 18 20 Rate Blood Pressure 116/81 116/58 O2 Sat by Pulse 97 98 Oximetry Medical Decision Making <Gabriel Penaloza - Last Filed: 08/26/23 18:13> - Lab Data Result diagrams: 08/26/23 20:32 <Jada Jackson - Last Filed: 08/27/23 03:58> - Medical Decision Making Quicknote portion performed. Signed Gabriel Penaloza PA-C (Gabriel Penaloza) Was pt. sent in by a medical professional or institution ([facility], [facility] [employer], urgent care, hospital, or halfway...) When possible be specific @ -[No] Did you speak to anyone other than the patient for history (EMS, parent, family, police, friend...)? What history was obtained from this source @ -[No] Did you review nursing and triage notes (agree or disagree)? Why? @ -[I reviewed and agree with nursing and triage notes] Were old charts reviewed (outside hosp., previous admission, EMS record, old EKG, old radiological studies, urgent care reports/EKG's, halfway records)? Report findings @ -[No old charts were reviewed] Differential Diagnosis (chest pain, altered mental status, abdominal pain women, abdominal pain men, vaginal bleeding, weakness, fever, dyspnea, syncope, headache, dizziness, GI bleed, back pain, seizure, CVA, palpatations, mental health, musculoskeletal)? @ -[not applicable] EKG interpreted by me (3pts min.). @ -[As above] X-rays interpreted by me (1pt min.). @ -[None done] CT interpreted by me (1pt min.). @ -[None done] U/S interpreted by me (1pt. min.). @ -[None done] What testing was considered but not performed or refused? (CT, X-rays, U/S, labs)? Why? @ -[None] What meds were considered but not given or refused? Why? @ -[None] Did you discuss the management of the patient with other professionals (pro fessionals i.e. , PA, [employer], lab, RT, psych nurse, social studies teacher, foreclosure specialist, teacher, commercial account officer, case making machine operator)? Give summary @ -[No] Was smoking cessation discussed for >3mins.? @ -[No] Was critical care preformed (if so, how long)? @ -[No] Were there social determinants of health that impacted care today? How? (Homelessness, low income, unemployed, alcoholism, drug addiction, alejandro sportation, low edu. Level, literacy, decrease access to med. care, [place] [facility], rehab)? @ -[No] Was there de-escalation of care discussed even if they declined (Discuss DNR or withdrawal of care, Hospice)? DNR status @ -[No] What co-morbidities impacted this encounter? (DM, HTN, Smoking, COPD, CAD, Cancer, CVA, ARF, Chemo, Hep., AIDS, mental health diagnosis, sleep apnea, morbid obesity)? @ -[None] Was patient admitted / discharged? Hospital course, mention meds given and route, prescriptions, significant lab abnormalities, going to OR and other pertinent info. @ -Discharged This is a 28 female who presents the emergency department with sore throat. Patient also said physical exam performed. Throat reveals tonsillar megaly, tenderness or exudate. Patient afebrile and given Tylenol and Motrin for fever control. Patient had viral swabs including ne gative strep and mono testing. Patient given amoxicillin. Return precautions discussed at length. Case is discussed with Dr. Anna [facility] who agrees with POC Undiagnosed new problem with uncertain prognosis? @ -[No] Drug Therapy requiring intensive monitoring for toxicity (Heparin, Nitro, Insulin, Cardizem)? @ -[No] Were any procedures done? @ -[No] Diagnosis/symptom? @ -Fever VS. Strep Throat Acute, or Chronic, or Acute on Chronic? @ -Acute Uncomplicated (without systemic symptoms) or Complicated (systemic symptoms)? @ -Complicated Side effects of treatment? @ -[No] Exacerbation, Progression, or Severe Exacerbation? @ -[No] Poses a threat to life or bodily function? How? (Chest pain, [place], [place], pneumonia, PE, COPD, DKA, ARF, appy, cholecystitis, CVA, Diverticulitis, Homicidal, Suicidal, threat to staff... and all critical care pts) @ -Low likelihood (Jada Jackson) - Lab Data Lab Results 08/26/23 08/26/23 08/26/23 Range/Units 17:35 17:35 20:32 WBC 9.9 (3.8-10.6) k/uL RBC 4.54 (3.80-5.40) m/uL Hgb 13.3 (11.4-16.0) gm/dL Hct 40.0 (34.0-46.0) % MCV 88.1 (80.0-100.0) fL MCH 29.4 (25.0-35.0) pg MCHC 33.3 (31.0-37.0) g/dL RDW 12.8 (11.5-15.5) % Plt Count 246 (150-450) k/uL MPV 7.5 Neutrophils % 74 % Lymphocytes % 15 % Monocytes % 8 % Eosinophils % 0 % Basophils % 0 % Neutrophils # 7.3 (1.3-7.7) k/uL Lymphocytes # 1.4 (1.0-4.8) k/uL Monocytes # 0.8 (0-1.0) k/uL Eosinophils # 0.0 (0-0.7) k/uL Basophils # 0.0 (0-0.2) k/uL Heterophile Antibody (Negative) Influenza Type A (PCR) Not Detected (Not Detectd) Influenza Type B (PCR) Not Detected (Not Detectd) RSV (PCR) Not Detected (Not Detectd) SARS-CoV-2 (PCR) Not Detected (Not Detectd) Group A Strep (PCR) NOT DETECTED (Not Detectd) 08/26/23 Range/Units 20:32 WBC (3.8-10.6) k/uL RBC (3.80-5.40) m/uL Hgb (11.4-16.0) gm/dL Hct (34.0-46.0) % MCV (80.0-100.0) fL MCH (25.0-35.0) pg MCHC (31.0-37.0) g/dL RDW (11.5-15.5) % Plt Count (150-450) k/uL MPV Neutrophils % % Lymphocytes % % Monocytes % % Eosinophils % % Basophils % % Neutrophils # (1.3-7.7) k/uL Lymphocytes # (1.0-4.8) k/uL Monocytes # (0-1.0) k/uL Eosinophils # (0-0.7) k/uL Basophils # (0-0.2) k/uL Heterophile Antibody Negative (Negative) Influenza Type A (PCR) (Not Detectd) Influenza Type B (PCR) (Not Detectd) RSV (PCR) (Not Detectd) SARS-CoV-2 (PCR) (Not Detectd) Group A Strep (PCR) (Not Detectd) Disposition <Gabriel Penaloza - Last Filed: 08/26/23 18:13> Is patient prescribed a controlled substance at d/c from ED?: No Time of Disposition: 23:09 <Jada Jackson Last Filed: 08/27/23 03:58> Clinical Impression: Sore throat Disposition: HOME SELF-CARE Condition: Stable Instructions (If sedation given, give patient instructions): Fever in Adults (ED) Additional Instructions: PLease take antibiotics for 10 days Please take Tylenol or Motrin for fever control Please return to the nearest emergency department if worsening symptoms Prescriptions: Amoxicillin 875 mg PO Q12HR #20 tablet Referrals: None,Stated [Primary Care Provider] - 1-2 days
[2023-08-26] MEDS ORDERED: ACETAMINOPHEN TAB 325 MG TAB PO STA (19:49)
[2023-08-26] MEDS ORDERED: IBUPROFEN 600 MG TAB PO STA (19:49)
[2023-08-26 21:00] LABS: Basophils % (A) 0 %; Eosinophils % (A) 0 %; HGB 13.3 gm/dL (11.4-16.0); Lymphocytes # (A) 1.4 k/uL (1.0-4.8); Lymphocytes % (A) 15 %; MCH 29.4 pg (25.0-35.0); MCHC 33.3 g/dL (31.0-37.0); MCV 88.1 fL (80.0-100.0); Mean Platelet Volume 7.5; Monocytes # (A) 0.8 k/uL (0-1.0); Monocytes % (A) 8 %; Neutrophils # (A) 7.3 k/uL (1.3-7.7); Neutrophils % (A) 74 %; Platelet Count 246 k/uL (150-450); RBC 4.54 m/uL (3.80-5.40); RDW 12.8 % (11.5-15.5); WBC 9.9 k/uL (3.8-10.6)
[2023-08-26] MEDS ORDERED: AMOXICILLIN 875 MG TAB PO STA ×2 (23:04→23:10)
[2023-08-26 23:30] VITALS: BP 116/58; PULSE 87; RESP 20; TEMP 97.8
== END 2023-08-26 23:27 | disposition home or self-care (01) ==
LOC: EC 17:27
DX: J02.9 Acute pharyngitis, unspecified (principal); Z20.822 Contact with and (suspected) exposure to COVID-19
CPT/HCPCS: 36415; 85025; 86308; 87636; 87651; 99284

== ENCOUNTER 2023-10-22 12:48 | Emergency (ER) | payer OTHER ==
[2023-10-22 13:35] VITALS: RESP 16; TEMP 98.7
--- NOTE | 2023-10-22 13:56 | ED ---
Abdominal Pain HPI - General Chief Complaint: Abdominal Pain Stated Complaint: possible flu, preg 6wks Time Seen by Provider: 10/22/23 13:22 Source: patient, RN notes reviewed Mode of arrival: ambulatory Limitations: no limitations - History of Present Illness Initial Comments: Patient is a 28-year-old female presented to the ER with a chief complaint of fever and abdominal pain. Patient is 6 weeks . Patient has not establish care with an OB and has appointment scheduled on 11-10-2023. Patient states yesterday she felt chilled and feverish. Patient also reports yesterday she was having some lower abdominal cramping. Patient denies any vaginal bleeding but does report white discharge yesterday. Patient states she also been mildly congested and with a cough. She denies any chest pain, shortness of breath, constipation/diarrhea, urinary complaints or peripheral edema. - Related Data Home Medications Medication Instructions Recorded Confirmed Vit No.180/Iron/Folic 1 tab PO DAILY 10/26/20 12/06/20 [ Plus Tablet] Previous Rx's Medication Instructions Recorded Amoxic-Pot Clav 875-125Mg 1 tab PO Q12HR #20 tablet 06/30/21 [Augmentin 875-125] Tobramycin 0.3% Ophth Soln [Tobrex 1 - 2 drop BOTH EYES Q4H #5 ml 04/29/23 0.3% Ophth Soln] Amoxicillin 875 mg PO Q12HR #20 tablet 08/26/23 Allergies Allergy/AdvReac Type Severity Reaction Status Date / Time No Known Allergies Allergy Verified 08/26/23 17:34 Review of Systems ROS Statement: Those systems with pertinent positive or pertinent negative responses have been documented in the HPI. ROS Other: All systems not noted in ROS Statement are negative. Past Medical History Past Medical History: No Reported History History of Any Multi-Drug Resistant Organisms: None Reported Past Surgical History: Section, Orthopedic Surgery Past Anesthesia/Blood Transfusion Reactions: No Reported Reaction Past Psychological History: No Psychological Hx Reported Smoking Status: Never smoker Past Alcohol Use History: None Reported Past Drug Use History: None Reported - Past Family History Mother Family Medical History: No Reported History General Exam Limitations: no limitations General appearance: alert, in no apparent distress Eye exam: Present: normal appearance, PERRL, EOMI. Absent: scleral icterus, conjunctival injection, periorbital swelling ENT exam: Present: normal exam, normal oropharynx, mucous membranes moist, TM's normal bilaterally Neck exam: Present: normal inspection. Absent: tenderness, meningismus, lymphadenopathy Respiratory exam: Present: normal lung sounds bilaterally. Absent: respiratory distress, wheezes, rales, rhonchi, stridor Cardiovascular Exam: Present: regular rate, normal rhythm, normal heart sounds. Absent: systolic murmur, diastolic murmur, rubs, gallop, clicks GI/Abdominal exam: Present: soft, tenderness (Mild suprapubic), normal bowel ambrose nds. Absent: distended, guarding, rebound, rigid Neurological exam: Present: alert, oriented X3, CN II-XII intact Psychiatric exam: Present: normal affect, normal mood Skin exam: Present: warm, dry, intact, normal color. Absent: rash Course Vital Signs 10/22/23 10/22/23 10/22/23 13:18 15:48 17:17 Temperature 98.7 F Pulse Rate 99 96 Respiratory 16 16 16 Rate Blood Pressure 134/75 112/70 O2 Sat by Pulse 98 100 Oximetry Medical Decision Making - Medical Decision Making Was pt. sent in by a medical professional or institution (, PA, CROSS TIE MAKER, urgent care, hospital, or alf...) When possible be specific @ -No Did you speak to anyone other than the patient for history (EMS, parent, family, police, friend...)? What history was obtained from this source @ -No Did you review nursing and triage notes (agree or disagree)? Why? @ -I reviewed and agree with nursing and triage notes Were old charts reviewed (outside hosp., previous admission, EMS record, old EKG, old radiological studies, urgent care reports/EKG's, alf records)? Report findings @ -No old charts were reviewed Differential Diagnosis (chest pain, altered mental status, abdominal pain women, abdominal pain men, vaginal bleeding, weakness, fever, dyspnea, syncope, headache, dizziness, GI bleed, back pain, seizure, CVA, palpatations, mental health, musculoskeletal)? @ -Differential Fever: Pneumonia, viral URI, endocarditis, myocarditis, pericarditis, otitis, sinusitis, peritonsillar Abscess, retropharyngeal Abscess, epiglottitis, peritonitis, appendicitis, Yamilet cystitis, diverticulitis, hepatitis, colitis, UTI, PID, TOA, pyelonephritis, prostatitis, epididymitis, meningitis, encephalitis, pulmonary embolism, CVA, thyroid storm, pancreatitis, adrenal crisis, cavernous sinus thrombosis, this is not meant to be an all-inclusive list. EKG interpreted by me (3pts min.). @ -None X-rays interpreted by me (1pt min.). @ -Chest x-ray interpreted by me shows no acute process. CT interpreted by me (1pt min.). @ -None done U/S interpreted by me (1pt. min.). @ - ultrasound shows a single IUP age around 6 weeks 1 day. There is a small subchorionic hemorrhage. What testing was considered but not performed or refused? (CT, X-rays, U/S, labs)? Why? @ -None What meds were considered but not given or refused? Why? @ -None Did you discuss the management of the patient with other professionals (professionals i.e. , PA, CROSS TIE MAKER, lab, RT, psych nurse, social service liaison, inspector process, teacher, police booking officer, case management assistant)? Give summary @ -No Was smoking cessation discussed for >3mins.? @ -No Was critical care preformed (if so, how long)? @ -No Were there social determinants of health that impacted care today? How? (Homelessness, low income, unemployed, alcoholism, drug addiction, transportation, low edu. Level, literacy, decrease access to med. care, group home, rehab)? @ -No Was there de-escalation of care discussed even if they declined (Discuss DNR or withdrawal of care, Hospice)? DNR status @ -No What co-morbidities impacted this encounter? (DM, HTN, Smoking, COPD, CAD, Cancer, CVA, ARF, Chemo, Hep., AIDS, mental health diagnosis, sleep apnea, morbid obesity)? @ - Was patient admitted / discharged? Hospital course, mention meds given and route, prescriptions, significant lab abnormalities, going to OR and other pertinent info. @ -Discharge. Patient is a 28-year-old female presented to ER with a chief complaint of abdominal pain and fevers. Vitals stable. History and physical exam were completed. Patient was in no signs of acute distress. Patient denied any vagin al bleeding. Patient was mildly tender to suprapubic region. Labs obtained in ER unremarkable. Serum hCG 39,737. Influenza A positive. RSV ,COVID-negative. Urinalysis without signs of infection. Ultrasound obtained in the ER shows a single IUP calculated for age 6 weeks 1 day. There is also a small subchorionic hemorrhage. Chest x-ray interpreted by me shows no acute process. Lab and imag ing results discussed with patient. Advised her to follow-up with OB as scheduled on 11-10-2023. Advised [id number] Tylenol for fever and pain control. Return parameters were discussed. Patient be discharged stable condition follow-up to OB/PCP. Patient stressed understanding and agreement with care plan. Undiagnosed new problem with uncertain prognosis? @ -No Drug Therapy requiring intensive monitoring for toxicity (Heparin, Nitro, Insulin, Cardizem)? @ -No Were any procedures done? @ -No Diagnosis/symptom? @ -Influenza A//subchorionic hemorrhage Acute, or Chronic, or Acute on Chronic? @ -Acute Uncomplicated (without systemic symptoms) or Complicated (systemic symptoms)? @ -Uncomplicated Side effects of treatment? @ -No Exacerbation, Progression, or Severe Exacerbation? @ -No Poses a threat to life or bodily function? How? (Chest pain, [place], [place], pneumonia, PE, COPD, DKA, ARF, appy, cholecystitis, CVA, Diverticulitis, Homicidal, Suicidal, threat to staff... and all critical care pts) @ -No - Lab Data Result diagrams: 10/22/23 14:32 10/22/23 14:32 Lab Results 10/22/23 10/22/23 10/22/23 Range/Units 14:32 14:32 14:32 WBC 6.8 (3.8-10.6) k/uL RBC 4.65 (3.80-5.40) m/uL Hgb 13.5 (11.4-16.0) gm/dL Hct 40.6 (34.0-46.0) % MCV 87.2 (80.0-100.0) fL MCH 28.9 (25.0-35.0) pg MCHC 33.2 (31.0-37.0) g/dL RDW 12.7 (11.5-15.5) % Plt Count 314 (150-450) k/uL MPV 7.3 Sodium 139 (137-145) mmol/L Potassium 3.8 (3.5-5.1) mmol/L Chloride 106 (98-107) mmol/L Carbon Dioxide 22 (22-30) mmol/L Anion Gap 11 mmol/L BUN 7 (7-17) mg/dL Creatinine 0.61 (0.52-1.04) mg/dL Est GFR (CKD-EPI)AfAm >90 (>60 ml/min/1.73 sqM) Est GFR (CKD-EPI)NonAf >90 (>60 ml/min/1.73 sqM) Glucose 92 (74-99) mg/dL Calcium 9.1 (8.4-10.2) mg/dL Total Bilirubin 0.4 (0.2-1.3) mg/dL AST 32 (14-36) U/L ALT 28 (4-34) U/L Alkaline Phosphatase 53 (38-126) U/L Total Protein 7.6 (6.3-8.2) g/dL Albumin 4.3 (3.5-5.0) g/dL HCG, Quant 43955.8 mIU/mL Urine Color Colorless Urine Appearance Cloudy H (Clear) Urine pH 6.5 (5.0-8.0) Ur Specific [place] 1.008 (1.001-1.035) Urine Protein Negative (Negative) Urine Glucose (UA) Negative (Negative) Urine Ketones Negative (Negative) Urine Blood Small H (Negative) Urine Nitrite Negative (Negative) Urine Bilirubin Negative (Negative) Urine Urobilinogen <2.0 (<2.0) mg/dL Ur Leukocyte Esterase Negative (Negative) Urine RBC 3 (0-5) /hpf Urine WBC 3 (0-5) /hpf Ur Squamous Epith Cells 12 H (0-4) /hpf Urine Bacteria Rare H (None) /hpf Influenza Type A (PCR) (Not Detectd) Influenza Type B (PCR) (Not Detectd) RSV (PCR) (Not Detectd) SARS-CoV-2 (PCR) (Not Detectd) 10/22/23 Range/Units 14:32 WBC (3.8-10.6) k/uL RBC (3.80-5.40) m/uL Hgb (11.4-16.0) gm/dL Hct (34.0-46.0) % MCV (80.0-100.0) fL MCH (25.0-35.0) pg MCHC (31.0-37.0) g/dL RDW (11.5-15.5) % Plt Count (150-450) k/uL MPV Sodium (137-145) mmol/L Potassium (3.5-5.1) mmol/L Chloride (98-107) mmol/L Carbon Dioxide (22-30) mmol/L Anion Gap mmol/L BUN (7-17) mg/dL Creatinine (0.52-1.04) mg/dL Est GFR (CKD-EPI)AfAm (>60 ml/min/1.73 sqM) Est GFR (CKD-EPI)NonAf (>60 ml/min/1.73 sqM) Glucose (74-99) mg/dL Calcium (8.4-10.2) mg/dL Total Bilirubin (0.2-1.3) mg/dL AST (14-36) U/L ALT (4-34) U/L Alkaline Phosphatase (38-126) U/L Total Protein (6.3-8.2) g/dL Albumin (3.5-5.0) g/dL HCG, Quant mIU/mL Urine Color Urine Appearance (Clear) Urine pH (5.0-8.0) Ur Specific [place] (1.001-1.035) Urine Protein (Negative) Urine Glucose (UA) (Negative) Urine Ketones (Negative) Urine Blood (Negative) Urine Nitrite (Negative) Urine Bilirubin (Negative) Urine Urobilinogen (<2.0) mg/dL Ur Leukocyte Esterase (Negative) Urine RBC (0-5) /hpf Urine WBC (0-5) /hpf Ur Squamous Epith Cells (0-4) /hpf Urine Bacteria (None) /hpf Influenza Type A (PCR) Detected A (Not Detectd) Influenza Type B (PCR) Not Detected (Not Detectd) RSV (PCR) Not Detected (Not Detectd) SARS-CoV-2 (PCR) Not Detected (Not Detectd) - Radiology Data Radiology results: report reviewed, image reviewed Disposition Clinical Impression: Influenza, , Subchorionic hemorrhage Disposition: HOME SELF-CARE Condition: Stable Instructions (If sedation given, give patient instructions): Influenza (ED), Subchorionic Hemorrhage (ED) Additional Instructions: Take Tylenol [id number] as needed for fever and symptom control. Follow- up with OB as scheduled. Return to ER for any new or worsening symptoms. Is patient prescribed a controlled substance at d/c from ED?: No Referrals: None,Stated [Primary Care Provider] - 1-2 days Time of Disposition: 17:48
[2023-10-22 15:10] LABS: HCT 40.6 % (34.0-46.0); HGB 13.5 gm/dL (11.4-16.0); MCH 28.9 pg (25.0-35.0); MCHC 33.2 g/dL (31.0-37.0); MCV 87.2 fL (80.0-100.0); Mean Platelet Volume 7.3; Platelet Count 314 k/uL (150-450); RBC 4.65 m/uL (3.80-5.40); RDW 12.7 % (11.5-15.5); WBC 6.8 k/uL (3.8-10.6)
[2023-10-22 15:17] LABS: Appearance,Urine Cloudy (Clear); Bacteria,Urine Rare /hpf; Bilirubin,Urine Negative (Negative); Blood,Urine Small (Negative); Color,Urine Colorless; Glucose,Urine (UA) Negative (Negative); Ketones,Urine Negative (Negative); Leukocyte Esterase,Urine Negative (Negative); Nitrite,Urine Negative (Negative); PH, Urine 6.5 (5.0-8.0); Protein,Urine Negative (Negative); RBC,Urine 3 /hpf (0-5); Specific Gravity,Urine 1.008 (1.001-1.035); Squamous Epithelial Cell,Urine 12 /hpf (0-4); Urobilinogen,Urine <2.0 mg/dL (<2.0); WBC,Urine 3 /hpf (0-5)
[2023-10-22 15:29] LABS: ALT 28 U/L (4-34); AST 32 U/L (14-36); African American GFR (CKD) >90 (>60 ml/min/1.73 sqM); Albumin 4.3 g/dL (3.5-5.0); Alkaline Phosphatase 53 U/L (38-126); Anion Gap 11 mmol/L; Blood Urea Nitrogen 7 mg/dL (7-17); Calcium 9.1 mg/dL (8.4-10.2); Carbon Dioxide 22 mmol/L (22-30); Chloride 106 mmol/L (98-107); Glucose 92 mg/dL (74-99); Non-African American GFR(CKD) >90 (>60 ml/min/1.73 sqM); Potassium 3.8 mmol/L (3.5-5.1); Sodium 139 mmol/L (137-145); Total Bilirubin 0.4 mg/dL (0.2-1.3); Total Protein 7.6 g/dL (6.3-8.2)
[2023-10-22 16:22] LABS: HCG,Quantitative Serum 39737.8 mIU/mL
[2023-10-22 17:22] VITALS: BP 112/70; PULSE 96
--- NOTE | 2023-10-22 17:23 | US ---
EXAMINATION TYPE: Transabdominal DATE OF EXAM: 10/22/2023 4:53 PM COMPARISON: NONE CLINICAL INDICATION: Female, 28 years old with history of abdominal cramping; Abdominal cramping, fev er, and bleeding for a few days. EXAM PERFORMED: Transvaginal (TV) and Transabdominal (TA) EXAM MEASUREMENTS: GESTATIONAL AGE / DATING Physician Established Dates by LMP: (6 weeks/3 days) EDC: 06/13/2024 Dates by First Scan: No previous this is first scan Dates by Current Scan for: (6 weeks/1 days) EDC: 06/15/2024 MATERNAL ANATOMY Uterus: 9.6 x 5.1 x 5.2 cm Right Ovary: 1.4 x 2.8 x 1.8cm Left Ovary: 3.4 x 2.6 x 3.0cm Post CDS / Adnexa: There is a small amount of free fluid adjacent to left ovary Presence of free fluid: There is free fluid adjacent to the left ovary Presence of corpus luteal cyst: Yes left ovary, 2.4 x 1.5 x 1.4cm. Presence of subchorionic bleed: There is a 0.4cm anechoic area adjacent to the GS. GESTATION / SURVEY CRL: 0.5 cm (6 weeks/` days) Yolk Sac (normal less than 6mm): 4mm Heart Rate: 120 bpm Rhythm: Normal IUP: Viable IUP Date of LMP: 09/07/2023 Beta HcG (if available): Not available at this time IMPRESSION: 1. Single live intrauterine with calculated ultrasound age of 6 weeks 1 day . 2. Small subchorionic hemorrhage suggested.
--- NOTE | 2023-10-22 18:03 | XR ---
EXAMINATION TYPE: XR chest 2V DATE OF EXAM: 10/22/2023 5:39 PM CLINICAL INDICATION:Female, 28 years old with history of fever; [facility] COMPARISON: None TECHNIQUE: XR chest 2V Frontal and lateral views of the chest. FINDINGS: Lungs/Pleura: There is no evidence of pleural effusion, focal consolidation, or pneumothorax. Pulmonary vascularity: Unremarkable. Heart/mediastinum: Cardiomediastinal silhouette is unremarkable. Musculoskeletal: No acute osseous pathology. IMPRESSION: No acute cardiopulmonary disease/process.
== END 2023-10-22 18:17 | disposition home or self-care (01) ==
LOC: EC 12:48
DX: O98.511 Other viral diseases complicating pregnancy, first trimester (principal); J10.1 Influenza due to other identified influenza virus with other respiratory manifestations; O20.8 Other hemorrhage in early pregnancy; Z20.822 Contact with and (suspected) exposure to COVID-19; Z3A.01 Less than 8 weeks gestation of pregnancy
CPT/HCPCS: 36415; 71046; 76801; 76817; 80053; 81001; 84702; 85027; 87636; 99284

== ENCOUNTER 2023-11-17 15:59 | Emergency (ER) | payer OTHER ==
[2023-11-17 16:11] VITALS: TEMP 98.7
--- NOTE | 2023-11-17 17:08 | ED ---
Female Urogenital HPI - General Chief complaint: Vaginal Bleeding Stated complaint: vag bleeding-10wks preg Time Seen by Provider: 11/17/23 16:28 Source: patient, RN notes reviewed Mode of arrival: ambulatory Limitations: no limitations - History of Present Illness Initial comments: This is a 28-year-old female who presents to the emergency department for vaginal bleeding in . Patient is about 9-10 weeks and . She was evaluated here in early October for vaginal bleeding in . She was found to have a subchorionic hemorrhage. She was advised by PROPERTY CONDITION ASSESSOR that if she had bleeding again, to come back to the emergency department. She did have some light spotting this morning that has since resolved. Denies any nausea /vomiting or pelvic pain. Currently follows with Dr. Ponce. Her next appointment is on 12/01. She did have a normal ultrasound 1 week ago. MD Complaint: vaginal bleeding - Related Data Home Medications Medication Instructions Recorded Confirmed Vit No.180/Iron/Folic 1 tab PO DAILY 10/26/20 12/06/20 [ Plus Tablet] Previous Rx's Medication Instructions Recorded Amoxic-Pot Clav 875-125Mg 1 tab PO Q12HR #20 tablet 06/30/21 [Augmentin 875-125] Tobramycin 0.3% Ophth Soln [Tobrex 1 - 2 drop BOTH EYES Q4H #5 ml 04/29/23 0.3% Ophth Soln] Amoxicillin 875 mg PO Q12HR #20 tablet 08/26/23 Allergies Allergy/AdvReac Type Severity Reaction Status Date / Time No Known Allergies Allergy Verified 08/26/23 17:34 Review of Systems ROS Statement: Those systems with pertinent positive or pertinent negative responses have been documented in the HPI. ROS Other: All systems not noted in ROS Statement are negative. Past Medical History Past Medical History: No Reported History History of Any Multi-Drug Resistant Organisms: None Reported Past Surgical History: Section, Orthopedic Surgery Past Anesthesia/Blood Transfusion Reactions: No Reported Reaction Past Psychological History: No Psychological Hx Reported Smoking Status: Never smoker Past Alcohol Use History: None Reported Past Drug Use History: None Reported - Past Family History Mother Family Medical History: No Reported History General Exam Limitations: no limitations General appearance: alert, in no apparent distress Head exam: Present: atraumatic, normocephalic, normal inspection Respiratory exam: Present: normal lung sounds bilaterally. Absent: respiratory distress, wheezes, rales, rhonchi, stridor Cardiovascular Exam: Present: regular rate, normal rhythm, normal heart sounds. Absent: systolic murmur, diastolic murmur, rubs, gallop, clicks Neurological exam: Present: alert, oriented X3, CN II-XII intact Psychiatric exam: Present: normal affect, normal mood Skin exam: Present: warm, dry, intact, normal color. Absent: rash Course Vital Signs 11/17/23 11/17/23 16:01 19:00 Temperature 98.7 F Pulse Rate 92 87 Respiratory 18 17 Rate Blood Pressure 128/83 93/66 O2 Sat by Pulse 99 100 Oximetry Medical Decision Making - Medical Decision Making This is a 28 year old female who presents to the emergency department for vaginal bleeding in . Was pt. sent in by a medical professional or institution? @ -No Did you speak to anyone other than the patient for history? @ -No Did you review nursing and triage notes? @ -Yes, and I agree, it is accurate with regards to the patient's symptoms. Were old charts reviewed? @ -No Differential Diagnosis? @ -Differential Vaginal Bleeding: Spontaneous , threatened , molar , ectopic , incompetent cervix, placenta previa, uterine rupture, dysfunctional uterine b leeding, hemorrhage, uterine fibroids, malignancy, coagulopathy, PID, cervicitis, adenomyosis, vaginal trauma, this is not meant to be an all- inclusive list. EKG interpreted by me (3pts min.)? @ -Not obtained X-rays interpreted by me (1pt min.)? @ -Not obtained CT interpreted by me (1pt min.)? @ -Not obtained U/S interpreted by me (1pt. min.)? @ -OB US obtained. My interpretation identifies an IUP. What testing was considered but not performed? (CT, X-rays, U/S, labs)? Why? @ -None What meds were considered but not given? Why? @ -None Did you discuss the management of the patient with other professionals? @ -No Did you reconcile home meds? @ -No Was smoking cessation discussed for >3mins.? @ -No Was critical care preformed (if so, how long)? @ -No Were there social determinants of health that impacted care today? How? (Homelessness, low income, unemployed, alcoholism, drug addiction, transportation, low edu. Level, literacy, decrease access to med. care, retirement, rehab)? @ -No Was there de-escalation of care discussed even if they declined? (Discuss DNR or withdrawal of care, Hospice)? @ -No What co-morbidities impacted this encounter? (DM, HTN, Smoking, COPD, CAD, Cancer, CVA, Hep., AIDS, mental health diagnosis, sleep apnea, morbid obesity)? @ - Was patient admitted / discharged? @ -Discharged. Lab work obtained and found to be unremarkable. Urinalysis is negative for signs of infection. OB US obtained demonstrating a single live intrauterine . There is a possible subchorionic hemorrhage noted. Findings reviewed with the patient. Blood type is A+ and no RhoGAM is indicated. Patient discharged home in stable condition and advised to follow up with her PROPERTY CONDITION ASSESSOR. Undiagnosed new problem with uncertain prognosis? @ -None Drug Therapy requiring intensive monitoring for toxicity (Heparin, Nitro, Insulin, Cardizem)? @ -None Were any procedures done? @ -None Diagnosis/symptom? @ -Threatened miscarriage Acute, or Chronic, or Acute on Chronic? @ -Acute Uncomplicated (without systemic symptoms) or Complicated (systemic symptoms)? @ -Uncomplicated Side effects of treatment? @ -None Exacerbation, Progression, or Severe Exacerbation] @ -Not applicable Poses a threat to life or bodily function? @ -No Return precautions reviewed in depth, the patient is instructed to return to the emergency department with any new, worsening, or concerning symptoms. Patient verbalized understanding. This case was discussed in detail with the attending ED physician, Dr. Flores. Presentation, findings, and treatment plan discussed in detail as well. - Lab Data Result diagrams: 11/17/23 17:02 11/17/23 17:02 Lab Results 11/17/23 11/17/23 11/17/23 Range/Units 17:02 17:02 17:02 WBC 11.8 H (3.8-10.6) k/uL RBC 4.33 (3.80-5.40) m/uL Hgb 12.4 (11.4-16.0) gm/dL Hct 37.6 (34.0-46.0) % MCV 86.7 (80.0-100.0) fL MCH 28.6 (25.0-35.0) pg MCHC 33.0 (31.0-37.0) g/dL RDW 13.4 (11.5-15.5) % Plt Count 287 (150-450) k/uL MPV 7.6 Neutrophils % 69 % Lymphocytes % 22 % Monocytes % 5 % Eosinophils % 2 % Basophils % 0 % Neutrophils # 8.1 H (1.3-7.7) k/uL Lymphocytes # 2.6 (1.0-4.8) k/uL Monocytes # 0.6 (0-1.0) k/uL Eosinophils # 0.3 (0-0.7) k/uL Basophils # 0.0 (0-0.2) k/uL Sodium 136 L (137-145) mmol/L Potassium 3.8 (3.5-5.1) mmol/L Chloride 108 H (98-107) mmol/L Carbon Dioxide 24 (22-30) mmol/L Anion Gap 4 mmol/L BUN 11 (7-17) mg/dL Creatinine 0.44 L (0.52-1.04) mg/dL Est GFR (CKD-EPI)AfAm >90 (>60 ml/min/1.73 sqM) Est GFR (CKD-EPI)NonAf >90 (>60 ml/min/1.73 sqM) Glucose 86 (74-99) mg/dL Calcium 8.7 (8.4-10.2) mg/dL Total Bilirubin 0.4 (0.2-1.3) mg/dL AST 23 (14-36) U/L ALT 19 (4-34) U/L Alkaline Phosphatase 54 (38-126) U/L Total Protein 6.6 (6.3-8.2) g/dL Albumin 3.6 (3.5-5.0) g/dL HCG, Quant 33119.0 mIU/mL Urine Color Light Yellow Urine Appearance Clear (Clear) Urine pH 6.5 (5.0-8.0) Ur Specific [place] 1.024 (1.001-1.035) Urine Protein Negative (Negative) Urine Glucose (UA) Negative (Negative) Urine Ketones Negative (Negative) Urine Blood Small H (Negative) Urine Nitrite Negative (Negative) Urine Bilirubin Negative (Negative) Urine Urobilinogen <2.0 (<2.0) mg/dL Ur Leukocyte Esterase Small H (Negative) Urine RBC 2 (0-5) /hpf Urine WBC 3 (0-5) /hpf Ur Squamous Epith Cells 11 H (0-4) /hpf Urine Mucus Rare H (None) /hpf Blood Type Blood Type Recheck Bld Type Recheck Status 11/17/23 Range/Units 17:02 WBC (3.8-10.6) k/uL RBC (3.80-5.40) m/uL Hgb (11.4-16.0) gm/dL Hct (34.0-46.0) % MCV (80.0-100.0) fL MCH (25.0-35.0) pg MCHC (31.0-37.0) g/dL RDW (11.5-15.5) % Plt Count (150-450) k/uL MPV Neutrophils % % Lymphocytes % % Monocytes % % Eosinophils % % Basophils % % Neutrophils # (1.3-7.7) k/uL Lymphocytes # (1.0-4.8) k/uL Monocytes # (0-1.0) k/uL Eosinophils # (0-0.7) k/uL Basophils # (0-0.2) k/uL Sodium (137-145) mmol/L Potassium (3.5-5.1) mmol/L Chloride (98-107) mmol/L Carbon Dioxide (22-30) mmol/L Anion Gap mmol/L BUN (7-17) mg/dL Creatinine (0.52-1.04) mg/dL Est GFR (CKD-EPI)AfAm (>60 ml/min/1.73 sqM) Est GFR (CKD-EPI)NonAf (>60 ml/min/1.73 sqM) Glucose (74-99) mg/dL Calcium (8.4-10.2) mg/dL Total Bilirubin (0.2-1.3) mg/dL AST (14-36) U/L ALT (4-34) U/L Alkaline Phosphatase (38-126) U/L Total Protein (6.3-8.2) g/dL Albumin (3.5-5.0) g/dL HCG, Quant mIU/mL Urine Color Urine Appearance (Clear) Urine pH (5.0-8.0) Ur Specific [place] (1.001-1.035) Urine Protein (Negative) Urine Glucose (UA) (Negative) Urine Ketones (Negative) Urine Blood (Negative) Urine Nitrite (Negative) Urine Bilirubin (Negative) Urine Urobilinogen (<2.0) mg/dL Ur Leukocyte Esterase (Negative) Urine RBC (0-5) /hpf Urine WBC (0-5) /hpf Ur Squamous Epith Cells (0-4) /hpf Urine Mucus (None) /hpf Blood Type A Positive Blood Type Recheck A Pos Bld Type Recheck Status No - Radiology Data Radiology results: report reviewed, image reviewed Disposition Clinical Impression: Vaginal bleeding during Disposition: HOME SELF-CARE Additional Instructions: Return to the emergency department with any new, worsening, or concerning symptoms. Follow up with your PROPERTY CONDITION ASSESSOR. Is patient prescribed a controlled substance at d/c from ED?: No Referrals: None,Stated [Primary Care Provider] - 1-2 days Time of Disposition: 19:00
--- NOTE | 2023-11-17 18:03 | US ---
EXAMINATION TYPE: Transabdominal DATE OF EXAM: 11/17/2023 5:49 PM COMPARISON: 10/22/23 CLINICAL INDICATION: Female, 28 years old with history of Vaginal bleeding in , 10 weeks pre gnant; spotting yesterday. EXAM PERFORMED: Transabdominal (TA) EXAM MEASUREMENTS: GESTATIONAL AGE / DATING Physician Established: (10 weeks/1 days) EDC: 06/13/24 Dates by First Scan: (9 weeks/6 days) EDC: 06/15/24 Dates by Current Scan for: (10 weeks/0 days) EDC: 06/14/24 MATERNAL ANATOMY Uterus: 11.5 x 8.5 x 6.8cm Right Ovary: 2.8 x 2.0 x 1.6cm Left Ovary: 3.5 x 3.2 x 3.2cm Post CDS / Adnexa: wnl Presence of free fluid: No Presence of corpus luteal cyst: Yes in left ovary measuring 1.7 x 1.9 x 1.9cm Presence of subchorionic bleed: Hypoechoic area seen adjacent to gest sac measuring 1.1 x 1.2 x 0.9cm , but appears vascular GESTATION / SURVEY CRL: 3.14cm (10 weeks/1 days) MSD: Not measured, appears wnl Yolk Sac (normal less than 6mm): 5.7mm Heart Rate: 167 bpm Rhythm: Normal IUP: Viable IUP Date of LMP: 09/07/23 Beta HcG (if available): N/A IMPRESSION: 1. Single live intrauterine with calculated ultrasound age of 10 weeks 0 days 2. Technique subchorionic hemorrhage suggested.
[2023-11-17 18:12] LABS: Basophils % (A) 0 %; Eosinophils # (A) 0.3 k/uL (0-0.7); Eosinophils % (A) 2 %; HCT 37.6 % (34.0-46.0); HGB 12.4 gm/dL (11.4-16.0); Lymphocytes # (A) 2.6 k/uL (1.0-4.8); Lymphocytes % (A) 22 %; MCH 28.6 pg (25.0-35.0); MCV 86.7 fL (80.0-100.0); Mean Platelet Volume 7.6; Monocytes # (A) 0.6 k/uL (0-1.0); Monocytes % (A) 5 %; Neutrophils # (A) 8.1 k/uL (1.3-7.7); Neutrophils % (A) 69 %; Platelet Count 287 k/uL (150-450); RBC 4.33 m/uL (3.80-5.40); RDW 13.4 % (11.5-15.5); WBC 11.8 k/uL (3.8-10.6)
[2023-11-17 18:25] LABS: Appearance,Urine Clear (Clear); Bilirubin,Urine Negative (Negative); Blood,Urine Small (Negative); Color,Urine Light Yellow; Glucose,Urine (UA) Negative (Negative); Ketones,Urine Negative (Negative); Leukocyte Esterase,Urine Small (Negative); Mucus,Urine Rare /hpf; Nitrite,Urine Negative (Negative); PH, Urine 6.5 (5.0-8.0); Protein,Urine Negative (Negative); RBC,Urine 2 /hpf (0-5); Specific Gravity,Urine 1.024 (1.001-1.035); Squamous Epithelial Cell,Urine 11 /hpf (0-4); Urobilinogen,Urine <2.0 mg/dL (<2.0); WBC,Urine 3 /hpf (0-5)
[2023-11-17 18:31] LABS: ALT 19 U/L (4-34); AST 23 U/L (14-36); African American GFR (CKD) >90 (>60 ml/min/1.73 sqM); Albumin 3.6 g/dL (3.5-5.0); Alkaline Phosphatase 54 U/L (38-126); Anion Gap 4 mmol/L; Blood Urea Nitrogen 11 mg/dL (7-17); Calcium 8.7 mg/dL (8.4-10.2); Carbon Dioxide 24 mmol/L (22-30); Chloride 108 mmol/L (98-107); Glucose 86 mg/dL (74-99); Non-African American GFR(CKD) >90 (>60 ml/min/1.73 sqM); Potassium 3.8 mmol/L (3.5-5.1); Sodium 136 mmol/L (137-145); Total Bilirubin 0.4 mg/dL (0.2-1.3); Total Protein 6.6 g/dL (6.3-8.2)
[2023-11-17 19:32] VITALS: BP 93/66; PULSE 87; RESP 17
== END 2023-11-17 19:18 | disposition home or self-care (01) ==
LOC: EC 15:59
DX: O46.91 Antepartum hemorrhage, unspecified, first trimester (principal); Z3A.10 10 weeks gestation of pregnancy
CPT/HCPCS: 36415; 76801; 80053; 81001; 84702; 85025; 86900; 86901; 99284

== ENCOUNTER 2024-01-06 07:48 | Emergency (ER) | payer OTHER ==
[2024-01-06 08:22] VITALS: RESP 18
--- NOTE | 2024-01-06 08:54 | ED ---
URI HPI - General Chief Complaint: Upper Respiratory Infection Stated Complaint: SOB,sore throat Time Seen by Provider: 01/06/24 08:00 Source: patient, RN notes reviewed Mode of arrival: ambulatory Limitations: no limitations - History of Present Illness Initial Comments: 28-year-old female at 17 weeks gestation presenting with cough and shortness of breath for 5 days. She is also complaining of sore throat and sensation of wheezing. States she has mild chest discomfort but only associated with coughing. Denies fever, nausea, vomiting, abdominal pain, vaginal bleeding. Denies leg swelling, recent travel, recent surgeries, history of blood clot. She has no significant past medical history. - Related Data Home Medications Medication Instructions Recorded Confirmed Vit No.180/Iron/Folic 1 tab PO DAILY 10/26/20 12/06/20 [ Plus Tablet] Previous Rx's Medication Instructions Recorded Amoxic-Pot Clav 875-125Mg 1 tab PO Q12HR #20 tablet 06/30/21 [Augmentin 875-125] Tobramycin 0.3% Ophth Soln [Tobrex 1 - 2 drop BOTH EYES Q4H #5 ml 04/29/23 0.3% Ophth Soln] Amoxicillin 875 mg PO Q12HR #20 tablet 08/26/23 Allergies Allergy/AdvReac Type Severity Reaction Status Date / Time No Known Allergies Allergy Verified 01/06/24 07:57 Review of Systems ROS Statement: Those systems with pertinent positive or pertinent negative responses have been documented in the HPI. ROS Other: All systems not noted in ROS Statement are negative. Past Medical History Past Medical History: No Reported History History of Any Multi-Drug Resistant Organisms: None Reported Past Surgical History: Section, Orthopedic Surgery Past Anesthesia/Blood Transfusion Reactions: No Reported Reaction Past Psychological History: No Psychological Hx Reported Smoking Status: Never smoker Past Alcohol Use History: None Reported Past Drug Use History: None Reported - Past Family History Mother Family Medical History: No Reported History General Exam Limitations: no limitations General appearance: alert, in no apparent distress Head exam: Present: atraumatic, normocephalic, normal inspection ENT exam: Present: normal exam, mucous membranes moist Respiratory exam: Present: normal lung sounds bilaterally. Absent: respiratory distress, wheezes, rales, rhonchi, stridor Cardiovascular Exam: Present: regular rate, normal rhythm, normal heart sounds. Absent: systolic murmur, diastolic murmur, rubs, gallop, clicks GI/Abdominal exam: Present: soft, normal bowel sounds. Absent: distended, tenderness, guarding, rebound, rigid Psychiatric exam: Present: normal affect, normal mood Skin exam: Present: warm, dry, intact, normal color. Absent: rash Course Vital Signs 01/06/24 01/06/24 07:55 08:13 Temperature 98.7 F Pulse Rate 78 Respiratory 18 18 Rate Blood Pressure 114/69 O2 Sat by Pulse 97 Oximetry Medical Decision Making - Medical Decision Making Was pt. sent in by a medical professional or institution (, PA, PUMP MECHANIC, urgent care, hospital, or snf...) When possible be specific @ -No Did you speak to anyone other than the patient for history (EMS, parent, family, police, friend...)? What history was obtained from this source @ -No Did you review nursing and triage notes (agree or disagree)? Why? @ -I reviewed and agree with nursing and triage notes Were old charts reviewed (outside hosp., previous admission, EMS record, old EKG, old radiological studies, urgent care reports/EKG's, snf records)? Report findings @ -No old charts were reviewed Differential Diagnosis (chest pain, altered mental status, abdominal pain women, abdominal pain men, vaginal bleeding, weakness, fever, dyspnea, syncope, headache, dizziness, GI bleed, back pain, seizure, CVA, palpatations, mental health, musculoskeletal)? @ -Viral URI, streptococcal pharyngitis, pulmonary embolism, pneumonia EKG interpreted by me (3pts min.). @ -As above X-rays interpreted by me (1pt min.). @ -Chest x-ray negative CT interpreted by me (1pt min.). @ -None done U/S interpreted by me (1pt. min.). @ -None done What testing was considered but not performed or refused? (CT, X-rays, U/S, labs)? Why? @ -D-dimer/CT angio not performed due to patient has minimal risk factors for PE, symptoms more likely related to viral URI. Vitals are stable, patient satting appropriately and is not tachycardic. No changes present on EKG What meds were considered but not given or refused? Why? @ -None Did you discuss the management of the patient with other professionals (professionals i.e. Dr., PA, PUMP MECHANIC, lab, RT, psych nurse, social security specialist, real estate site analyst, teacher, v/stol landing signal officer, classification case manager)? Give summary @ -No Was smoking cessation discussed for >3mins.? @ -No Was critical care preformed (if so, how long)? @ -No Were there social determinants of health that impacted care today? How? (Homelessness, low income, unemployed, alcoholism, drug addiction, transportation, low edu. Level, literacy, decrease access to med. care, group home, rehab)? @ -No Was there de-escalation of care discussed even if they declined (Discuss DNR or withdrawal of care, Hospice)? DNR status @ -No What co-morbidities impacted this encounter? (DM, HTN, Smoking, COPD, CAD, Cancer, CVA, ARF, Chemo, Hep., AIDS, mental health diagnosis, sleep apnea, morbid obesity)? @ -None Was patient admitted / discharged? Hospital course, mention meds given and route, prescriptions, significant lab abnormalities, going to OR and other pertinent info. @ -Patient was discharged. Patient was seen and evaluated for cough and shortness of breath for 5 days. Physical examination, lab work, viral testing, and imaging unremarkable. Discussed with patient that symptoms are likely caused by a viral URI. Strict return symptoms discussed. Supportive treatment discussed. Patient discharged in stable condition. Case discussed with Dr. Alejo Undiagnosed new problem with uncertain prognosis? @ -No Drug Therapy requiring intensive monitoring for toxicity (Heparin, Nitro, I nsulin, Cardizem)? @ -No Were any procedures done? @ -No Diagnosis/symptom? @ -Acute URI Acute, or Chronic, or Acute on Chronic? @ -Acute Uncomplicated (without systemic symptoms) or Complicated (systemic symptoms)? @ -Uncomplicated Side effects of treatment? @ -No Exacerbation, Progression, or Severe Exacerbation? @ -No Poses a threat to life or bodily function? How? (Chest pain, [place], [place], pneumonia, PE, COPD, DKA, ARF, appy, cholecystitis, CVA, Diverticulitis, Homicidal, Suicidal, threat to staff... and all critical care pts) @ -No - Lab Data Result diagrams: 01/06/24 08:45 01/06/24 08:45 Lab Results 01/06/24 01/06/24 01/06/24 Range/Units 08:45 08:45 08:45 WBC 7.6 (3.8-10.6) k/uL RBC 4.02 (3.80-5.40) m/uL Hgb 11.9 (11.4-16.0) gm/dL Hct 35.1 (34.0-46.0) % MCV 87.3 (80.0-100.0) fL MCH 29.5 (25.0-35.0) pg MCHC 33.8 (31.0-37.0) g/dL RDW 14.4 (11.5-15.5) % Plt Count 256 (150-450) k/uL MPV 7.5 Neutrophils % 67 % Lymphocytes % 19 % Monocytes % 6 % Eosinophils % 4 % Basophils % 1 % Neutrophils # 5.1 (1.3-7.7) k/uL Lymphocytes # 1.5 (1.0-4.8) k/uL Monocytes # 0.5 (0-1.0) k/uL Eosinophils # 0.3 (0-0.7) k/uL Basophils # 0.0 (0-0.2) k/uL Sodium (137-145) mmol/L Potassium (3.5-5.1) mmol/L Chloride (98-107) mmol/L Carbon Dioxide (22-30) mmol/L Anion Gap mmol/L BUN (7-17) mg/dL Creatinine (0.52-1.04) mg/dL Est GFR (CKD-EPI)AfAm (>60 ml/min/1.73 sqM) Est GFR (CKD-EPI)NonAf (>60 ml/min/1.73 sqM) Glucose (74-99) mg/dL Calcium (8.4-10.2) mg/dL Total Bilirubin (0.2-1.3) mg/dL AST (14-36) U/L ALT (4-34) U/L Alkaline Phosphatase (38-126) U/L Total Protein (6.3-8.2) g/dL Albumin (3.5-5.0) g/dL Influenza Type A (PCR) Not Detected (Not Detectd) Influenza Type B (PCR) Not Detected (Not Detectd) RSV (PCR) Not Detected (Not Detectd) SARS-CoV-2 (PCR) Not Detected (Not Detectd) Group A Strep (PCR) NOT DETECTED (Not Detectd) 01/06/24 Range/Units 08:45 WBC (3.8-10.6) k/uL RBC (3.80-5.40) m/uL Hgb (11.4-16.0) gm/dL Hct (34.0-46.0) % MCV (80.0-100.0) fL MCH (25.0-35.0) pg MCHC (31.0-37.0) g/dL RDW (11.5-15.5) % Plt Count (150-450) k/uL MPV Neutrophils % % Lymphocytes % % Monocytes % % Eosinophils % % Basophils % % Neutrophils # (1.3-7.7) k/uL Lymphocytes # (1.0-4.8) k/uL Monocytes # (0-1.0) k/uL Eosinophils # (0-0.7) k/uL Basophils # (0-0.2) k/uL Sodium 137 (137-145) mmol/L Potassium 4.0 (3.5-5.1) mmol/L Chloride 110 H (98-107) mmol/L Carbon Dioxide 21 L (22-30) mmol/L Anion Gap 6 mmol/L BUN 5 L (7-17) mg/dL Creatinine 0.49 L (0.52-1.04) mg/dL Est GFR (CKD-EPI)AfAm >90 (>60 ml/min/1.73 sqM) Est GFR (CKD-EPI)NonAf >90 (>60 ml/min/1.73 sqM) Glucose 84 (74-99) mg/dL Calcium 8.4 (8.4-10.2) mg/dL Total Bilirubin 0.3 (0.2-1.3) mg/dL AST 22 (14-36) U/L ALT 22 (4-34) U/L Alkaline Phosphatase 57 (38-126) U/L Total Protein 6.2 L (6.3-8.2) g/dL Albumin 3.2 L (3.5-5.0) g/dL Influenza Type A (PCR) (Not Detectd) Influenza Type B (PCR) (Not Detectd) RSV (PCR) (Not Detectd) SARS-CoV-2 (PCR) (Not Detectd) Group A Strep (PCR) (Not Detectd) Disposition Clinical Impression: Acute upper respiratory infection Disposition: HOME SELF-CARE Condition: Stable Instructions (If sedation given, give patient instructions): Upper Respiratory Infection (ED) Additional Instructions: Please return to the Emergency Department if symptoms worsen or any other concerns. Is patient prescribed a controlled substance at d/c from ED?: No Referrals: None,Stated [Primary Care Provider] - 1-2 days Time of Disposition: 10:26
[2024-01-06 09:05] LABS: Basophils % (A) 1 %; Eosinophils # (A) 0.3 k/uL (0-0.7); Eosinophils % (A) 4 %; HCT 35.1 % (34.0-46.0); HGB 11.9 gm/dL (11.4-16.0); Lymphocytes # (A) 1.5 k/uL (1.0-4.8); Lymphocytes % (A) 19 %; MCH 29.5 pg (25.0-35.0); MCHC 33.8 g/dL (31.0-37.0); MCV 87.3 fL (80.0-100.0); Mean Platelet Volume 7.5; Monocytes # (A) 0.5 k/uL (0-1.0); Monocytes % (A) 6 %; Neutrophils # (A) 5.1 k/uL (1.3-7.7); Neutrophils % (A) 67 %; Platelet Count 256 k/uL (150-450); RBC 4.02 m/uL (3.80-5.40); RDW 14.4 % (11.5-15.5); WBC 7.6 k/uL (3.8-10.6)
[2024-01-06 09:14] LABS: ALT 22 U/L (4-34); AST 22 U/L (14-36); African American GFR (CKD) >90 (>60 ml/min/1.73 sqM); Albumin 3.2 g/dL (3.5-5.0); Alkaline Phosphatase 57 U/L (38-126); Anion Gap 6 mmol/L; Blood Urea Nitrogen 5 mg/dL (7-17); Calcium 8.4 mg/dL (8.4-10.2); Carbon Dioxide 21 mmol/L (22-30); Chloride 110 mmol/L (98-107); Glucose 84 mg/dL (74-99); Non-African American GFR(CKD) >90 (>60 ml/min/1.73 sqM); Sodium 137 mmol/L (137-145); Total Bilirubin 0.3 mg/dL (0.2-1.3); Total Protein 6.2 g/dL (6.3-8.2)
--- NOTE | 2024-01-06 09:56 | XR ---
EXAMINATION TYPE: XR chest 2V DATE OF EXAM: 01/06/2024 COMPARISON: 10/22/2023 INDICATION: Shortness of breath and cough TECHNIQUE: Frontal and lateral views of the chest are obtained. FINDINGS: The heart size is normal. The pulmonary vasculature is normal. The lungs are clear. IMPRESSION: 1. No acute pulmonary process.
[2024-01-06 11:16] VITALS: BP 100/65; PULSE 84; TEMP 98
== END 2024-01-06 10:42 | disposition home or self-care (01) ==
LOC: EC 07:48
DX: J06.9 Acute upper respiratory infection, unspecified (principal)
CPT/HCPCS: 36415; 71046; 80053; 85025; 87636; 87651; 93005; 99285

== ENCOUNTER 2024-06-06 09:56 | Inpatient (IN) | payer OTHER ==
[2024-06-01 10:20] VITALS: BMI 39.1
[~2024-06-06 09:56] MED LIST: KETOROLAC 15 MG/ML 1 ML VIAL ONE; MORPHINE SULFATE (PF) 0.3 MG/0.3 ML SYR ONE; NALBUPHINE 10 MG/ML (10 ML MDV) ONE; ONDANSETRON 4 MG/2 ML VIAL ONE; OXYTOCIN 30 UNITS/500 ML NS BAG IV ONE; ePHEDrine 50 MG/ML 1 ML VIAL ONE; fentaNYL (PF) 50 MCG/ML 2 ML AMP ONE
[2024-06-06] MEDS ORDERED: TRANEXAMIC 1,000 MG/100ML-NACL 1,000 MG in EMPTY BAG 1 BAG IV PRN (10:04)
[2024-06-06] MEDS ORDERED: miSOPROStoL 200 MCG TAB PO PRN (10:04)
[2024-06-06] MEDS ORDERED: CARBOPROST TROMETHAMINE 250 MCG/ML 1 ML AMP IM PRN (10:04)
[2024-06-06] MEDS ORDERED: OXYTOCIN 10 UNIT/ML 1 ML VIAL IM PRN (10:04)
[2024-06-06] MEDS ORDERED: METHYLERGONOVINE 0.2 MG/ML 1 ML AMP IM PRN (10:04)
[2024-06-06] MEDS ORDERED: OXYTOCIN 30 UNITS/500 ML NS 30 UNIT in SALINE 1 500ML.BAG IV SCH (10:15)
[2024-06-06] MEDS: LACTATED RINGERS 1,000 ML IV SCH (10:27)
[2024-06-06 10:33] LABS: Basophils % (A) 0 %; Eosinophils # (A) 0.2 k/uL (0-0.7); Eosinophils % (A) 1 %; HCT 33.7 % (34.0-46.0); HGB 10.7 gm/dL (11.4-16.0); Hypochromasia Moderate; Lymphocytes # (A) 1.8 k/uL (1.0-4.8); Lymphocytes % (A) 17 %; MCH 26.3 pg (25.0-35.0); MCHC 31.9 g/dL (31.0-37.0); MCV 82.4 fL (80.0-100.0); Mean Platelet Volume 7.5; Monocytes # (A) 0.5 k/uL (0-1.0); Monocytes % (A) 4 %; Neutrophils # (A) 8.3 k/uL (1.3-7.7); Neutrophils % (A) 75 %; Platelet Count 321 k/uL (150-450); RBC 4.09 m/uL (3.80-5.40); RDW 15.1 % (11.5-15.5); WBC 11.1 k/uL (3.8-10.6)
[2024-06-06] MEDS: CITRIC ACID-SODIUM CITRATE 15 ML CUP PO ONE (11:51)
[2024-06-06] MEDS ORDERED: NALBUPHINE 10 MG/ML (10 ML MDV) ONE (12:12)
[2024-06-06] MEDS ORDERED: ePHEDrine 50 MG/ML 1 ML VIAL ONE (12:12)
[2024-06-06] MEDS ORDERED: KETOROLAC 15 MG/ML 1 ML VIAL ONE (12:12)
[2024-06-06] MEDS ORDERED: OXYTOCIN 30 UNITS/500 ML NS BAG IV ONE (12:12)
[2024-06-06] MEDS ORDERED: fentaNYL (PF) 50 MCG/ML 2 ML AMP ONE (12:12)
[2024-06-06] MEDS ORDERED: ONDANSETRON 4 MG/2 ML VIAL ONE (12:12)
[2024-06-06] MEDS ORDERED: MORPHINE SULFATE (PF) 0.3 MG/0.3 ML SYR ONE (12:12)
[2024-06-06] MEDS ORDERED: diphenhydrAMINE 50 MG CAP PO PRN (13:09)
[2024-06-06] MEDS ORDERED: METOCLOPRAMIDE 5 MG/ML 2 ML VIAL IVP PRN (13:09)
[2024-06-06] MEDS ORDERED: diphenhydrAMINE 50 MG/ML 1 ML VIAL IVP PRN ×2 (13:09)
[2024-06-06] MEDS ORDERED: NALOXONE 0.4 MG/ML 1 ML VIAL IV PRN (13:09)
[2024-06-06] MEDS ORDERED: LANOLIN CREAM 1 GM TUBE TOPICAL PRN (13:09)
[2024-06-06] MEDS ORDERED: ZOLPIDEM 5 MG TAB PO PRN (13:09)
[2024-06-06] MEDS ORDERED: ONDANSETRON 4 MG/2 ML VIAL IVP PRN (13:09)
--- NOTE | 2024-06-06 13:14 | P.HPOB ---
History of Present Illness H&P Date: 06/06/24 Chief Complaint: 39-0/7 weeks, previous section, requesting repeat The patient is a 28-year-old 2 para 1-0-0-1 admitted at 39-0/7 weeks as established by last menstrual period and confirmed by 9-week ultrasound. She is admitted for repeat low-transverse section having undergone a previous section and requesting repeat. Her has otherwise been entirely uncomplicated and group B strep status is negative. On labor and delivery, all signs are reassuring with a category 1 heart rate tracing. Obstetrical history: 2 para 1-0-0-1 with 1 term section. Current statistics are listed in history of present illness. EDC of 06/13/2024 was established by last menstrual period and confirmed by 9-week ultrasound. Laboratory workup demonstrates a blood type of A+ with a negative antibody screen. Rubella status is immune. The remainder of the laboratory workup was within normal limits. Early Glucola and second trimester Glucola were within normal limits. Group B strep status is negative. Gynecologic history: Unremarkable with no history of any infections to include STDs. Review of Systems Review of systems is confined to history of present illness. Past Medical History Past Medical History: No Reported History Additional Past Medical History / Comment(s): Varicose veins. History of Any Multi-Drug Resistant Organisms: None Reported Past Surgical History: Section, Orthopedic Surgery Additional Past Surgical History / Comment(s): Finger surgery. Past Anesthesia/Blood Transfusion Reactions: No Reported Reaction Past Psychological History: No Psychological Hx Reported Smoking Status: Never smoker Past Alcohol Use History: None Reported Past Drug Use History: None Reported - Past Family History Mother Family Medical History: No Reported History Medications and Allergies Home Medications Medication Instructions Recorded Confirmed Type Vit No.180/Iron/Folic 1 tab PO DAILY 10/26/20 06/06/24 History [ Plus Tablet] Aspirin [Adult Low Dose Aspirin EC] 81 mg PO DAILY 05/31/24 06/06/24 History Allergies Allergy/AdvReac Type Severity Reaction Status Date / Time No Known Allergies Allergy Verified 06/06/24 10:43 Exam Vital Signs Temp Pulse Resp BP Pulse Ox 06/06/24 10:03 97.4 F L 100 16 117/74 99 Intake and Output 06/05/24 06/06/24 06/06/24 22:59 06:59 14:59 Other: Weight 106.594 kg In general, this is a well-developed, well-nourished white female in no acute distress. Her heart has a regular rhythm and rate without murmur. Her lungs clear to auscultation bilaterally in all chinchilla. Her abdomen is gravid, nondistended, has normal active bowel sounds, soft, nontender, and without any palpable masses aside from uterine fundus. Her extremities are without any cyanosis, clubbing, or edema and are nontender to palpation bilaterally. Digital cervical examination is deferred. Results Result Diagrams: 06/06/24 10:20 Abnormal Lab Results - Last 24 Hours (Table) 06/06/24 Range/Units 10:20 WBC 11.1 H (3.8-10.6) k/uL Hgb 10.7 L (11.4-16.0) gm/dL Hct 33.7 L (34.0-46.0) % Neutrophils # 8.3 H (1.3-7.7) k/uL Assessment and Plan (1) Previous section Current Visit: Yes Status: Acute Code(s): Z98.891 - HISTORY OF UTERINE SCAR FROM PREVIOUS SURGERY SNOMED Code(s): 027011677 (2) Term Current Visit: Yes Status: Acute Code(s): Z34.90 - ENCNTR FOR SUPRVSN OF NORMAL , UNSP, UNSP TRIMESTER SNOMED Code(s): 78895770 Plan: The patient is admitted for repeat low-transverse section. The risks and complications of the procedure been thoroughly discussed and she has understood and agreed to proceed.
[2024-06-06] MEDS ORDERED: LACTATED RINGERS 1,000 ML IV SCH (13:15)
--- NOTE | 2024-06-06 13:19 | P.OP ---
Date of Procedure: 06/06/24 Preoperative Diagnosis: #1. 39-0/7 weeks, previous section, requesting repeat Postoperative Diagnosis: Same Procedure(s) Performed: #1. Repeat low-transverse section Anesthesia: spinal Surgeon: Marvin Ponce News Librarian #1: Lena Cotton Estimated Blood Loss (ml): 446 IV fluids (ml): 800 Urine output (ml): 50 Pathology: none sent Condition: stable Disposition: floor Operative Findings: The patient was taken to the operating room where she underwent low-transverse section and was delivered of a viable 6 pound 12 ounce baby girl with Apgars of 9 at 1 minute and 9 at 5 minutes in the occiput anterior position. The placenta was delivered manually, intact, grossly normal with a grossly normal three-vessel cord. The uterus, tubes, and ovaries were entirely normal to inspection. There was a moderate amount of scarring at the level of the fascia and rectus muscles. Description of Procedure: The patient was prepped and draped in usual fashion after spinal anesthesia was administered by the anesthesiologist. A Pfannenstiel incision was made through pre-existing scar and extended into the abdominal cavity that difficulty though there was a moderate amount of scarring noted at the level of the subcu tissues, fascia, and rectus muscles. The bladder peritoneum was significantly distal to the intended site of incision and was left intact. A 2 cm incision was made the transverse plane of the lower uterine segment to enter the uterus at which time there was clear fluid noted. The incision was extended both directions using the bandage scissors. The head was delivered up and through the incision where the nose and mouth were thoroughly suctioned. The remainder of the was delivered onto the field where the cord was doubly clamped, cut, and the infant passed for resuscitative measures with weight and Apgars as noted above. The placenta was delivered manually and intact as noted above. The uterus was exteriorized and the anterior cavity uterus swept of any remaining placental or membranous fragments. The margins of the uterine incision were grasped with Clark clamps and the incision closed in 2 layers. The first layer was a running locking stitch of 0 chromic catgut followed by a running imbricating layer of 0 chromic catgut, each from margin to margin. Hemostasis appeared to be excellent. The posterior cul-de-sac was suctioned with a guard followed by laparotomy sponge. The uterus was replaced within the abdominal cavity and the gutters were swept of any remaining blood, fluid, or clot. Reexamination of the uterine incision demonstrated excellent hemostasis. The parietal peritoneum was loosely reapproximated and the layer of muscles examined and made hemostatic with the Bovie. The fascia was closed with a 2 running stitches of 0 Vicryl proceeding for the lateral margins to the midpoint. The subcutaneous tissues were irrigated, made hemostatic with the Bovie, and reapproximated with a running stitch of 3-0 plain catgut. The skin was reapproximated with a running subcuticular stitch of 4-0 Vicryl from margin to margin followed by half-inch Steri-Strips placed with Mastisol. Quantitative blood loss for the case was 446 mL. There were no complications. All sponge, instrument, and needle counts were correct. The patient tolerated the procedure well and proceeded to the recovery room in stable condition. Both mother and are resting comfortably in recovery.
[2024-06-06] MEDS: ACETAMINOPHEN TAB 500 MG TAB PO SCH (14:58)
[2024-06-06] MEDS: diphenhydrAMINE 25 MG CAP PO PRN (16:27)
[2024-06-06] MEDS: KETOROLAC 15 MG/ML 1 ML VIAL IVP PRN (18:26)
[2024-06-06] MEDS: SENNOSIDES-DOCUSATE SODIUM 1 EACH TAB PO SCH (21:06)
[2024-06-06] MEDS: IBUPROFEN 600 MG TAB PO SCH (21:07)
--- NOTE | 2024-06-07 06:12 | P.PN ---
Progress Note - Text Progress Note Date: 06/07/24 Liz was seen this morning after her C section yesterday with spinal Duramorph. She reports her pain is well-controlled. She is having some pruritus. She has been able to ambulate. She has not been able to urinate and had to be straight cathed this morning. Denies any lower extremity weakness numbness or tingling. No altered mental status. She was holding her baby along with her this morning. Overall her pain is controlled well. She will be monitored. If she is unable to urinate throughout the day please alert the anesthesiologist radiology receptionist
[2024-06-07 07:04] LABS: Basophils % (A) 0 %; Eosinophils # (A) 0.2 k/uL (0-0.7); Eosinophils % (A) 2 %; HCT 27.3 % (34.0-46.0); Hypochromasia Slight; Lymphocytes # (A) 1.5 k/uL (1.0-4.8); Lymphocytes % (A) 12 %; MCH 26.7 pg (25.0-35.0); MCHC 32.5 g/dL (31.0-37.0); MCV 82.3 fL (80.0-100.0); Mean Platelet Volume 8.5; Monocytes # (A) 0.6 k/uL (0-1.0); Monocytes % (A) 5 %; Neutrophils # (A) 9.6 k/uL (1.3-7.7); Neutrophils % (A) 80 %; Platelet Count 251 k/uL (150-450); RBC 3.31 m/uL (3.80-5.40); RDW 15.6 % (11.5-15.5)
[2024-06-07 07:06] LABS: HGB 8.9 gm/dL (11.4-16.0)
--- NOTE | 2024-06-07 08:36 | P.PNOBGPC ---
Subjective - Subjective Patient reports: Reports appetite normal, Reports voiding normally, Reports pain well controlled, Reports ambulating normally : doing well, nursing well Objective - Vital Signs Latest vital signs: Vital Signs Temp Pulse Resp BP Pulse Ox 06/07/24 04:00 71 16 100/65 100 06/06/24 20:00 98 16 93/64 97 06/06/24 16:00 98.1 F 68 18 102/54 99 06/06/24 15:07 74 16 102/58 99 06/06/24 14:52 65 18 108/64 100 06/06/24 14:37 71 16 103/55 99 06/06/24 14:22 67 16 105/56 100 06/06/24 14:07 78 16 102/54 06/06/24 13:52 85 16 101/58 100 06/06/24 13:37 70 16 105/53 98 06/06/24 13:22 82 16 113/57 97 06/06/24 13:15 97.6 F 72 18 109/56 98 06/06/24 10:03 97.4 F L 100 16 117/74 99 Intake and Output 06/06/24 06/07/24 06/07/24 22:59 06:59 14:59 Output Total 817 Balance -817 Output: Urine 750 Uretheral (Webber) 400 Output, Quantitative 67 Blood Loss Other: Voiding Method Indwelling Catheter # Voids 0 - Exam Extremities: Present: normal Abdomen: Present: normal appearance, soft. Absent: distention, tenderness Incision: Present: normal, dry, intact Uterus: Present: normal, firm (The uterine fundus is tonic and appropriately tender just below the umbilicus.) - Labs Labs: Abnormal Lab Results - Last 24 Hours (Table) 06/06/24 06/07/24 Range/Units 10:20 06:29 WBC 11.1 H 12.0 H (3.8-10.6) k/uL RBC 3.31 L (3.80-5.40) m/uL Hgb 10.7 L 8.9 L D (11.4-16.0) gm/dL Hct 33.7 L 27.3 L (34.0-46.0) % RDW 15.6 H (11.5-15.5) % Neutrophils # 8.3 H 9.6 H (1.3-7.7) k/uL Assessment and Plan (1) Previous section Current Visit: Yes Status: Acute Code(s): Z98.891 - HISTORY OF UTERINE SCAR FROM PREVIOUS SURGERY SNOMED Code(s): 199460040 (2) Term Current Visit: Yes Status: Acute Code(s): Z34.90 - ENCNTR FOR SUPRVSN OF NORMAL , UNSP, UNSP TRIMESTER SNOMED Code(s): 67585645 (3) Status post section Current Visit: Yes Status: Acute Code(s): Z98.891 - HISTORY OF UTERINE SCAR FROM PREVIOUS SURGERY SNOMED Code(s): 937768256 Plan: Continue routine and postoperative care. I have encouraged the patient ambulate in the hallways routinely. I would anticipate discharge home tomorrow pending no complications.
--- NOTE | 2024-06-08 08:52 | P.DS ---
Providers Date of admission: 06/06/24 09:56 Expected date of discharge: 06/08/24 Attending physician: Marvin Ponce Primary care physician: Stated None - Discharge Diagnosis(es) (1) Previous section Current Visit: Yes Status: Acute (2) Term Current Visit: Yes Status: Acute (3) Status post section Current Visit: Yes Status: Acute Hospital Course: The patient is a 28-year-old 2 para 1-0-0-1 admitted at 39-0/7 weeks by good dating parameters. She is admitted for repeat low-transverse section having had a history of a previous section. Her was uncomplicated and group B strep status is negative. On labor and delivery, all signs were reassuring with a category 1 heart rate tracing. She was taken to the operating room where she was delivered by repeat low-transverse section of a viable 6 pound 12 ounce baby girl with Apgars of 9 at 1 minute and 9 at 5 minutes. Her and postoperative course was unremarkable with vital signs remaining stable and her temperature was afebrile throughout. She was deemed stable for discharge on and postoperative day #2. She was discharged home to follow-up in the office in 2 weeks for an incision check in 6 weeks routinely. Discharge instructions included calling for any significantly increased bleeding or foul-smelling lochia, significantly increased fever abdominal pain, perineal complaints, breast complaints, incisional complaints, or anything else that concerned her. She was additionally instructed to have nothing in the vagina for at least 6 weeks time to include intercourse and to abstain from any heavy lifting over the same period of time. She was lastly instructed to do no driving until off of all pain medications or 2 weeks time, whichever came first. She understood her instructions and agrees to follow-up as noted above. Discharge medications included continued vitamins as she has opted to breast-feed as well as [id number] analgesic pain medications. She was provided a prescription for Tylenol 3, 1-2 p.o. every 6 hours as needed pain, #20 dispensed with no refills. Maternal blood type is a positive and rubella status is immune. Discharge hemoglobin and hematocrit were 8.9 and 27.3 respectively. As result, she was instructed to use iron sulfate daily for approximately 1 month rebuild her hemoglobin. Procedures: #1. Repeat low-transverse section Patient Condition at Discharge: Stable Plan - Discharge Summary Discharge Rx Participant: Yes New Discharge Prescriptions: No Action Vit No.180/Iron/Folic [ Plus Tablet] 1 tab PO DAILY Aspirin [Adult Low Dose Aspirin EC] 81 mg PO DAILY Discharge Medication List Vit No.180/Iron/Folic [ Plus Tablet] 1 tab PO DAILY 10/26/20 [History] Aspirin [Adult Low Dose Aspirin EC] 81 mg PO DAILY 05/31/24 [History] Follow up Appointment(s)/Referral(s): Marvin Ponce MD [STAFF PHYSICIAN] - 06/20/24 1:00 pm (Post Appointment 07-18-2024 at 1:45pm) Discharge Disposition: HOME SELF-CARE
[2024-06-08 09:44] VITALS: BP 100/65; PULSE 80; RESP 20; TEMP 98.4
== END 2024-06-08 12:50 | disposition home or self-care (01) | DRG 540 ==
LOC: 4FBP 09:56
PROVIDERS: ADMIT Obstetrics & Gynecology; ATTEND Obstetrics & Gynecology
PROC: 10D00Z1 Extraction of Products of Conception, Low, Open Approach (ICD-10-PCS; principal; 2024-06-06 12:00)
DX: O34.211 Maternal care for low transverse scar from previous cesarean delivery (principal); L29.9 Pruritus, unspecified; Z37.0 Single live birth; Z3A.39 39 weeks gestation of pregnancy; Z79.82 Long term (current) use of aspirin
CPT/HCPCS: 85025; 86850; 86900; 86901